=== PATIENT | female | born 1985 | race Caucasian/White ===

== ENCOUNTER 2022-11-13 18:42 | Inpatient (IN) ==
[2022-11-13] MEDS ORDERED: SODIUM CHLORIDE 0.9% 1,000 ML IV ONE (18:45)
--- NOTE | 2022-11-13 18:59 | Emergency Department Note ---
Impression & Plan Sepsis, UTI (urinary tract infection), Acute hypotension, Pneumonia ED Provider Note NAME: RAMIRO GRAVES AGE: 37 SEX: F : 1985 ARRIVES VIA: Ambulance INFORMANT: Patient, EMS, documentation from the patient's rehab ED PROVIDER(S): Juan Davis DO CHIEF COMPLAINT: Sepsis HPI: The patient is a 37-year-old female who presented to the emergency department for an evaluation of sepsis. The patient has been at [facility] rehab for the last 8 days. The patient initially was seen at [facility] at the beginning of September. She was diagnosed with pneumonia. She was started on antibiotics. The patient's condition started to worsen. 911 was called and the patient was taken to [facility] in [place]. There she was treated with intubation and resuscitation. She developed bowel ischemia requiring a bowel resection. The patient did notice that she was having left-sided abdominal pain over the course the last few days. She is also been noticing fever. She has a wound VAC in place. The patient denies having any cough. She does have a history of tobacco use. She notices lower extremity swelling. The patient has been on antibiotics for the last few days. She was sent to the emergency department today because of further worsening of her condition. She did receive 200 mL of normal saline solution prior to arrival. The patient is a history of CHF. She has a history of low ejection fraction as well. ROS: See above HPI for pertinent positives & negatives. A total of 10 systems reviewed and were otherwise negative. PAST MEDICAL HISTORY: See Below PAST SURGICAL HISTORY: See Below FAMILY HISTORY: See Below SOCIAL HISTORY: See Below HOME MEDICATIONS: See Below ALLERGIES: See Below VITALS: See Below PHYSICAL EXAMINATION: GENERAL: The patient is awake and alert. The patient is very anxious and appears to be uncomfortable. EYES: The conjunctivae are clear. The pupils are round and reactive. EARS, NOSE, MOUTH AND THROAT: The nose is without any evidence of any deformity. Mucous membranes are dry. NECK: The neck is nontender and supple. RESPIRATORY: Normal respiratory effort is noted there is no evidence of wheezing rhonchi or rales CARDIOVASCULAR: Regular rate and rhythm noted there no murmurs rubs or gallops normal S1 normal S2. GASTROINTESTINAL: The abdomen is soft and mildly distended. There is significant left-sided tenderness to palpation. MUSCULOSKELETAL/EXTREMITIES: There is no evidence of gross deformity full range of motion is noted in the hips and shoulders. SKIN: Skin is warm and dry. There is pedal edema bilaterally. NEUROLOGIC: Patient is awake alert and oriented x3. MEDICAL DECISION MAKING: The patient is a 37-year-old female who presented to the emergency department from inpatient rehab for an evaluation of fever. The patient had a recent pneumonia. This led to a prolonged course of intubation as well as intensive care. The patient developed bowel ischemia. She did receive a bowel resection while she was at [facility]. The patient was sent to [facility] for rehab. She has been there for 8 days. She started to develop fever. She was sent to the emergency department for further evaluation. The patient was treated with IV fluids but was not given a full sepsis bolus given her cardiac history. She was treated with IV antibiotics. I discussed the patient's laboratory and radiographic studies with her. No postoperative infection was noted. She may have a slight pneumonia at the right base. Urinalysis does appear to be consistent with infection as well. I discussed patient's condition [facility] I also discussed the case with the ICU. Triage Nursing notes reviewed. Prior medical records reviewed Vital Signs: reviewed and remarkable for hypotension and tachycardia. Differential diagnosis: Viral syndrome, otitis, pharyngitis, pneumonia, influenza, meningitis, urinary tract infection, sepsis, bacteremia, as well as other pathologies. ER treatment provided: See below Diagnostics interpreted by me: ECG: EKG was obtained in the emergency department. My interpretation is normal sinus rhythm at 93 bpm. There is no ectopy. Left bundle branch block pattern was noted. No previous tracing was available. Cardiac Monitoring: An order was placed for continuous cardiac monitoring. The monitor shows a rate of 111 bpm with sinus rhythm. Laboratory studies: As stated above and show below. Imaging studies: See below. Radiographic imaging was reviewed by myself Consultation(s): I discussed this case with Dr. Martino who is [facility] ED COURSE: Procedures: none Critical Care: I have personally spent greater than 45 minutes of critical care time in the direct management of this patient. This includes bedside care, interpretation of diagnostic studies, and testing, discussion with consultants, patient, and family members, and other required patient management activities. This 45 minutes is in excess of all separately billable procedures.. Past Med/Surg History Medical History ADHD Bipolar disorder CHF (congestive heart failure) GERD with esophagitis Hypertension PTSD (post-traumatic stress disorder) Type 2 diabetes mellitus Surgical History History of bowel resection Social History Smoking Status: Current some day smoker Tobacco Type: Cigarettes Preferred Language: German Feels Safe at Home: Yes Results & Data (ED) Vital Signs Vital Signs - 24 hr 11/13/22 18:54 11/13/22 19:16 11/13/22 19:15 Temperature 37.9 C H Temperature Source Oral Pulse Rate 100 H 91 H Pulse Rate [Apical] Pulse Strength Normal Respiratory Rate 22 24 Respiratory Effort / Characteristics Non-Labored Spontaneous Respiratory Depth Normal Respiratory Pattern Regular Blood Pressure 91/60 L 90/61 L Blood Pressure [Right Arm] Blood Pressure Mean 70 70 Blood Pressure Mean [Right Arm] Pulse Oximetry 96 98 97 Oxygen Delivery Method Nasal Cannula Room Air Nasal Cannula Oxygen Flow Rate 2 2 2 Sepsis Recent Fever Within 48 Hours Yes Sepsis New/Unexplained Change in Mental Status No Sepsis Action Taken by Nursing Physician Notified 11/13/22 19:43 11/13/22 20:17 11/13/22 19:13 Temperature Temperature Source Pulse Rate 93 H 93 H Pulse Rate [Apical] 88 Pulse Strength Respiratory Rate 30 H 27 H Respiratory Effort / Characteristics Respiratory Depth Respiratory Pattern Blood Pressure 85/52 L Blood Pressure [Right Arm] 82/58 L Blood Pressure Mean 63 Blood Pressure Mean [Right Arm] 66 Pulse Oximetry 98 99 Oxygen Delivery Method Nasal Cannula Nasal Cannula Oxygen Flow Rate 2 2 Sepsis Recent Fever Within 48 Hours Sepsis New/Unexplained Change in Mental Status Sepsis Action Taken by Nursing 11/13/22 19:45 11/13/22 20:15 11/13/22 20:17 Temperature Temperature Source Pulse Rate 90 92 H 92 H Pulse Rate [Apical] Pulse Strength Respiratory Rate 20 27 H 19 Respiratory Effort / Characteristics Respiratory Depth Respiratory Pattern Blood Pressure 94/61 L 75/60 L 82/58 L Blood Pressure [Right Arm] Blood Pressure Mean 72 65 66 Blood Pressure Mean [Right Arm] Pulse Oximetry 99 98 90 Oxygen Delivery Method Oxygen Flow Rate 2 2 2 Sepsis Recent Fever Within 48 Hours Sepsis New/Unexplained Change in Mental Status Sepsis Action Taken by Nursing 11/13/22 20:30 11/13/22 20:46 11/13/22 21:00 Temperature Temperature Source Pulse Rate 90 96 H 99 H Pulse Rate [Apical] Pulse Strength Respiratory Rate 26 H 20 38 H Respiratory Effort / Characteristics Respiratory Depth Respiratory Pattern Blood Pressure 96/50 L 87/48 L 96/60 L Blood Pressure [Right Arm] Blood Pressure Mean 65 61 72 Blood Pressure Mean [Right Arm] Pulse Oximetry 90 90 Oxygen Delivery Method Oxygen Flow Rate 2 2 2 Sepsis Recent Fever Within 48 Hours Sepsis New/Unexplained Change in Mental Status Sepsis Action Taken by Nursing 11/13/22 21:16 11/13/22 21:32 11/13/22 22:15 Temperature Temperature Source Pulse Rate 101 H 105 H 114 H Pulse Rate [Apical] Pulse Strength Respiratory Rate 26 H 25 H 26 H Respiratory Effort / Characteristics Respiratory Depth Respiratory Pattern Blood Pressure 100/62 109/54 L 89/70 L Blood Pressure [Right Arm] Blood Pressure Mean 74 72 76 Blood Pressure Mean [Right Arm] Pulse Oximetry 96 90 94 Oxygen Delivery Method Oxygen Flow Rate 2 2 2 Sepsis Recent Fever Within 48 Hours Sepsis New/Unexplained Change in Mental Status Sepsis Action Taken by Nursing 11/13/22 22:30 11/13/22 22:45 Temperature Temperature Source Pulse Rate 111 H Pulse Rate [Apical] Pulse Strength Respiratory Rate 28 H 26 H Respiratory Effort / Characteristics Respiratory Depth Respiratory Pattern Blood Pressure 104/68 111/76 Blood Pressure [Right Arm] Blood Pressure Mean 80 87 Blood Pressure Mean [Right Arm] Pulse Oximetry 90 90 Oxygen Delivery Method Oxygen Flow Rate 2 2 Sepsis Recent Fever Within 48 Hours Sepsis New/Unexplained Change in Mental Status Sepsis Action Taken by Assisted Medications Current Medication List: was personally reviewed by me Laboratory Data Attestation: I reviewed the patient's lab results. 11/13/22 18:53 11/13/22 18:53 Lab Results 11/13/22 11/13/22 11/13/22 Range/Units 18:53 18:53 18:53 WBC 17.06 H (4.8-10.8) K/ul RBC 3.38 L (4.20-5.40) M/uL Hgb 10.1 L (12.0-16.0) g/dl Hct 31.0 L (37.0-47.0) % MCV 91.7 (80.0-100.0) fL MCH 29.9 (25.0-34.0) pg MCHC 32.6 (32.0-36.0) g/dL RDW Std Deviation 69.6 H (36.4-46.3) fL RDW Coeff of Ramiro 20.8 H (11.5-14.5) % Plt Count 161 (130-400) K/uL MPV 9.7 (9.4-12.4) fL Immature Gran % (Auto) 0.6 % Neut % (Auto) 85.2 % Lymph % (Auto) 5.0 % [place] % (Auto) 9.0 % Eos % (Auto) 0.0 % Baso % (Auto) 0.2 % Neut # (Auto) 14.52 H (1.40-6.50) K/uL Lymph # (Auto) 0.86 L (1.20-3.40) K/uL [place] # (Auto) 1.54 H (0.11-0.59) K/uL Eos # (Auto) 0.00 (0.00-0.50) K/uL Baso # (Auto) 0.04 (0.00-0.20) K/uL Immature Gran # (Auto) 0.10 (0.01-0.20) K/uL Anisocytosis Present Ovalocytes 1+ PT (9.0-12.0) Seconds INR (0.9-1.1) APTT (21.0-31.0) Seconds PTT Ratio VBG pH (7.36-7.41) VBG pCO2 (38-50) mmHg VBG pO2 mmHg VBG HCO3 mmol/L VBG O2 Saturation % VBG Base Excess mEq/L Sodium 129 L (136-145) mmol/L Potassium 4.8 (3.5-5.1) mmol/L Chloride 100 (98-107) mmol/L Carbon Dioxide 17 L (21-32) mmol/L Anion Gap 12 H (3-11) BUN 24 H (6-23) mg/dl Creatinine 1.20 (0.6-1.2) mg/dl Est Cr Clr Drug Dosing 95.3 ml/min Est GFR ( Amer) 66.9 ml/min Est GFR (Non-Af Amer) 57.7 ml/min BUN/Creatinine Ratio 20.0 (10-20) Glucose 142 H (70-99(Fasting)) mg/dl Lactate 1.7 (0.4-2.0) mmol/L Calcium 6.5 L (8.6-10.3) mg/dl Magnesium 0.7 L* (1.7-2.4) mg/dl Total Bilirubin 0.7 (0.2-1.0) mg/dl Direct Bilirubin 0.2 (0-0.2) mg/dl AST 22 (13-39) U/L ALT 25 (7-52) U/L Alkaline Phosphatase 215 H (34-104) U/L Troponin I High Sens 22.6 H (0-14) pg/ml Total Protein 5.6 L (6.0-8.3) gm/dl Albumin 2.8 L (3.4-5.0) gm/dl Procalcitonin (0-0.5) ng/ml Urine Color Urine Appearance (Clear) Urine pH (4.5-7.5) Ur Specific [place] (1.000-1.030) Urine Protein (Negative) Urine Glucose (UA) (Negative) Urine Ketones (Negative) Urine Blood (Negative) Urine Nitrite (Negative) Urine Bilirubin (Negative) Urine Urobilinogen (Negative) Ur Leukocyte Esterase (Negative) Urine WBC (Auto) (0-5) /hpf Urine RBC (Auto) (0-4) /hpf U Hyaline Cast (Auto) (0-5) /lpf U Epithel Cells (Auto) (0-5) /lpf Urine Bacteria (Auto) (Negative) Adenovirus (PCR) (NotDetected) B. pertussis DNA (PCR) (NotDetected) B.parapertussis DNA PCR (NotDetected) C. pneumoniae DNA (PCR) (NotDetected) Coronavirus OC43 (PCR) (NotDetected) Coronavirus HKU1 (PCR) (NotDetected) Coronavirus 229E (PCR) (NotDetected) SARS-CoV-2 (PCR) (NotDetected) Coronavirus NL63 (PCR) (NotDetected) Human Metapneumovir PCR (NotDetected) Influenza Type A (PCR) (NotDetected) Influenza Type B (PCR) (NotDetected) M. pneumoniae (PCR) (NotDetected) Parainfluenza 1 (PCR) (NotDetected) Parainfluenza 2 (PCR) (NotDetected) Parainfluenza 3 (PCR) (NotDetected) Parainfluenza 4 (PCR) (NotDetected) RSV (PCR) (NotDetected) Entero/Rhino (PCR) (NotDetected) 11/13/22 11/13/22 11/13/22 Range/Units 18:53 19:11 19:14 WBC (4.8-10.8) K/ul RBC (4.20-5.40) M/uL Hgb (12.0-16.0) g/dl Hct (37.0-47.0) % MCV (80.0-100.0) fL MCH (25.0-34.0) pg MCHC (32.0-36.0) g/dL RDW Std Deviation (36.4-46.3) fL RDW Coeff of Ramiro (11.5-14.5) % Plt Count (130-400) K/uL MPV (9.4-12.4) fL Immature Gran % (Auto) % Neut % (Auto) % Lymph % (Auto) % [place] % (Auto) % Eos % (Auto) % Baso % (Auto) % Neut # (Auto) (1.40-6.50) K/uL Lymph # (Auto) (1.20-3.40) K/uL [place] # (Auto) (0.11-0.59) K/uL Eos # (Auto) (0.00-0.50) K/uL Baso # (Auto) (0.00-0.20) K/uL Immature Gran # (Auto) (0.01-0.20) K/uL Anisocytosis Ovalocytes PT 14.0 H (9.0-12.0) Seconds INR 1.3 H (0.9-1.1) APTT 33.5 H (21.0-31.0) Seconds PTT Ratio 1.2 VBG pH (7.36-7.41) VBG pCO2 (38-50) mmHg VBG pO2 mmHg VBG HCO3 mmol/L VBG O2 Saturation % VBG Base Excess mEq/L Sodium (136-145) mmol/L Potassium (3.5-5.1) mmol/L Chloride (98-107) mmol/L Carbon Dioxide (21-32) mmol/L Anion Gap (3-11) BUN (6-23) mg/dl Creatinine (0.6-1.2) mg/dl Est Cr Clr Drug Dosing ml/min Est GFR ( Amer) ml/min Est GFR (Non-Af Amer) ml/min BUN/Creatinine Ratio (10-20) Glucose (70-99(Fasting)) mg/dl Lactate (0.4-2.0) mmol/L Calcium (8.6-10.3) mg/dl Magnesium (1.7-2.4) mg/dl Total Bilirubin (0.2-1.0) mg/dl Direct Bilirubin (0-0.2) mg/dl AST (13-39) U/L ALT (7-52) U/L Alkaline Phosphatase (34-104) U/L Troponin I High Sens (0-14) pg/ml Total Protein (6.0-8.3) gm/dl Albumin (3.4-5.0) gm/dl Procalcitonin (0-0.5) ng/ml Urine Color Dark Yellow Urine Appearance Cloudy A (Clear) Urine pH 5.5 (4.5-7.5) Ur Specific [place] 1.017 (1.000-1.030) Urine Protein 1+ H (Negative) Urine Glucose (UA) 1+ H (Negative) Urine Ketones Negative (Negative) Urine Blood Negative (Negative) Urine Nitrite Negative (Negative) Urine Bilirubin Negative (Negative) Urine Urobilinogen Negative (Negative) Ur Leukocyte Esterase 2+ H (Negative) Urine WBC (Auto) >30 H (0-5) /hpf Urine RBC (Auto) 0-4 (0-4) /hpf U Hyaline Cast (Auto) 1-5 (0-5) /lpf U Epithel Cells (Auto) 5-10 H (0-5) /lpf Urine Bacteria (Auto) Negative (Negative) Adenovirus (PCR) Not Detected (NotDetected) B. pertussis DNA (PCR) Not Detected (NotDetected) B.parapertussis DNA PCR Not Detected (NotDetected) C. pneumoniae DNA (PCR) Not Detected (NotDetected) Coronavirus OC43 (PCR) Not Detected (NotDetected) Coronavirus HKU1 (PCR) Not Detected (NotDetected) Coronavirus 229E (PCR) Not Detected (NotDetected) SARS-CoV-2 (PCR) Not Detected (NotDetected) Coronavirus NL63 (PCR) Not Detected (NotDetected) Human Metapneumovir PCR Not Detected (NotDetected) Influenza Type A (PCR) Not Detected (NotDetected) Influenza Type B (PCR) Not Detected (NotDetected) M. pneumoniae (PCR) Not Detected (NotDetected) Parainfluenza 1 (PCR) Not Detected (NotDetected) Parainfluenza 2 (PCR) Not Detected (NotDetected) Parainfluenza 3 (PCR) Not Detected (NotDetected) Parainfluenza 4 (PCR) Not Detected (NotDetected) RSV (PCR) Not Detected (NotDetected) Entero/Rhino (PCR) Not Detected (NotDetected) 11/13/22 11/13/22 11/13/22 Range/Units 19:14 19:14 21:37 WBC (4.8-10.8) K/ul RBC (4.20-5.40) M/uL Hgb (12.0-16.0) g/dl Hct (37.0-47.0) % MCV (80.0-100.0) fL MCH (25.0-34.0) pg MCHC (32.0-36.0) g/dL RDW Std Deviation (36.4-46.3) fL RDW Coeff of Ramiro (11.5-14.5) % Plt Count (130-400) K/uL MPV (9.4-12.4) fL Immature Gran % (Auto) % Neut % (Auto) % Lymph % (Auto) % [place] % (Auto) % Eos % (Auto) % Baso % (Auto) % Neut # (Auto) (1.40-6.50) K/uL Lymph # (Auto) (1.20-3.40) K/uL [place] # (Auto) (0.11-0.59) K/uL Eos # (Auto) (0.00-0.50) K/uL Baso # (Auto) (0.00-0.20) K/uL Immature Gran # (Auto) (0.01-0.20) K/uL Anisocytosis Ovalocytes PT (9.0-12.0) Seconds INR (0.9-1.1) APTT (21.0-31.0) Seconds PTT Ratio VBG pH 7.33 L (7.36-7.41) VBG pCO2 36 L (38-50) mmHg VBG pO2 30 mmHg VBG HCO3 19 mmol/L VBG O2 Saturation < 60.0 % VBG Base Excess -6.2 mEq/L Sodium (136-145) mmol/L Potassium (3.5-5.1) mmol/L Chloride (98-107) mmol/L Carbon Dioxide (21-32) mmol/L Anion Gap (3-11) BUN (6-23) mg/dl Creatinine (0.6-1.2) mg/dl Est Cr Clr Drug Dosing ml/min Est GFR ( Amer) ml/min Est GFR (Non-Af Amer) ml/min BUN/Creatinine Ratio (10-20) Glucose (70-99(Fasting)) mg/dl Lactate (0.4-2.0) mmol/L Calcium (8.6-10.3) mg/dl Magnesium (1.7-2.4) mg/dl Total Bilirubin (0.2-1.0) mg/dl Direct Bilirubin (0-0.2) mg/dl AST (13-39) U/L ALT (7-52) U/L Alkaline Phosphatase (34-104) U/L Troponin I High Sens 13.0 D (0-14) pg/ml Total Protein (6.0-8.3) gm/dl Albumin (3.4-5.0) gm/dl Procalcitonin 4.30 H (0-0.5) ng/ml Urine Color Urine Appearance (Clear) Urine pH (4.5-7.5) Ur Specific [place] (1.000-1.030) Urine Protein (Negative) Urine Glucose (UA) (Negative) Urine Ketones (Negative) Urine Blood (Negative) Urine Nitrite (Negative) Urine Bilirubin (Negative) Urine Urobilinogen (Negative) Ur Leukocyte Esterase (Negative) Urine WBC (Auto) (0-5) /hpf Urine RBC (Auto) (0-4) /hpf U Hyaline Cast (Auto) (0-5) /lpf U Epithel Cells (Auto) (0-5) /lpf Urine Bacteria (Auto) (Negative) Adenovirus (PCR) (NotDetected) B. pertussis DNA (PCR) (NotDetected) B.parapertussis DNA PCR (NotDetected) C. pneumoniae DNA (PCR) (NotDetected) Coronavirus OC43 (PCR) (NotDetected) Coronavirus HKU1 (PCR) (NotDetected) Coronavirus 229E (PCR) (NotDetected) SARS-CoV-2 (PCR) (NotDetected) Coronavirus NL63 (PCR) (NotDetected) Human Metapneumovir PCR (NotDetected) Influenza Type A (PCR) (NotDetected) Influenza Type B (PCR) (NotDetected) M. pneumoniae (PCR) (NotDetected) Parainfluenza 1 (PCR) (NotDetected) Parainfluenza 2 (PCR) (NotDetected) Parainfluenza 3 (PCR) (NotDetected) Parainfluenza 4 (PCR) (NotDetected) RSV (PCR) (NotDetected) Entero/Rhino (PCR) (NotDetected) Administered Medications Discontinued Medications Diphenhydramine HCl (Diphenhydramine 50 Mg/Ml Vial) 25 mg IV NOW STA Stop: 11/13/22 20:06 Last Admin: 11/13/22 20:18 Dose: 25 mg Documented By: SON Diphenhydramine HCl (Diphenhydramine 50 Mg/Ml Vial) Confirm Administered Dose 50 mg .ROUTE .STK-MED ONE Stop: 11/13/22 20:07 Last Admin: 11/13/22 20:18 Dose: Not Given Documented By: SON Sodium Chloride (Nss) 1,000 mls @ 999 mls/hr IV .Q1H1M ONE Stop: 11/13/22 19:45 Last Admin: 11/13/22 19:47 Dose: 999 mls/hr Documented By: SON Cefepime HCl 2,000 mg/ Syringe 20 mls @ 5 mls/min IV NOW STA; Protocol Stop: 11/13/22 19:33 Last Admin: 11/13/22 19:56 Dose: 5 mls/min Documented By: SON Magnesium Sulfate/Dextrose (Magnesium Sulfate / D5w) 1 gm in 100 mls @ 100 mls/hr IV Q1H MABLE Stop: 11/13/22 21:37 Last Admin: 11/13/22 21:19 Dose: 100 mls/hr Documented By: Infusion: 11/13/22 21:18 Dose: 100 mls/hr Documented By: Admin: 11/13/22 20:18 Dose: 100 mls/hr Documented By: SON Famotidine (Pepcid 20mg Iv Push) 20 mg in 5 mls @ 2.5 mls/min IV NOW STA Stop: 11/13/22 20:06 Last Admin: 11/13/22 20:41 Dose: 2.5 mls/min Documented By: SON Ioversol (Optiray 320 100ml) 90 ml IV ONCE ONE Stop: 11/13/22 20:09 Last Admin: 11/13/22 20:08 Dose: 90 ml Documented By: LIZ Imaging Data Attestation: I personally reviewed and interpreted this imaging study as follows: My Impression: 1 view chest x-ray was obtained in the emergency department. My interpretation is cardiomegaly with atelectasis versus pneumonia at the right base, final report below. Radiologist's Impression: Chest X-Ray 11/13/22 18:45 XR chest 1V portable CLINICAL HISTORY: Sepsis. COMPARISON STUDY: No previous studies for comparison. FINDINGS: There is elevation of the right hemidiaphragm. Right basilar airspace opacity is present. Left lung is clear. There is probably vascular congestion without overt pulmonary edema. There is moderate enlargement of the cardiac silhouette. There is no pneumothorax or pleural effusion. IMPRESSION: 1. Moderate enlargement of the cardiac silhouette. This may reflect cardiomegaly. However, the contour of the silhouette raises the possibility of a pericardial effusion. Pulmonary vascular congestion without overt pulmonary edema. 2. Right basilar opacity. This may reflect pneumonia or atelectasis. ACT 112: Negative or not required by law. Electronically signed by: Federico Kidd M.D. 11/13/2022 7:43 PM Abdomen/Pelvis CT 10/01/23 19:37 Exam(s): CT ABDOMEN + PELVIS With Contrast IV Amt: 90ml EXAM: CT Abdomen and Pelvis With Intravenous Contrast CLINICAL HISTORY: Reason for exam: pos top fever. TECHNIQUE: Axial computed tomography images of the abdomen and pelvis with intravenous contrast. Automated exposure control was utilized for the study. A dose lowering technique was utilized adhering to the principles of ALARA. CONTRAST: Patient received 90ml of IV contrast COMPARISON: No relevant prior studies available. FINDINGS: Lung bases: Atelectasis at the lung bases. ABDOMEN: Liver: Hepatomegaly and hepatic steatosis. Gallbladder and bile ducts: Unremarkable. Pancreas: Unremarkable. Spleen: Unremarkable. Adrenals: Unremarkable. Kidneys and ureters: Unremarkable. No obstructing stones. No hydronephrosis. Stomach and bowel: No bowel obstruction, free fluid, fluid collection, or free air. PELVIS: Appendix: No findings to suggest acute appendicitis. Bladder: Higgins catheter within the bladder. Reproductive: Unremarkable as visualized. ABDOMEN and PELVIS: Intraperitoneal space: See above. Bones/joints: No acute fracture. Soft tissues: Unremarkable. Vasculature: Unremarkable. Lymph nodes: Unremarkable. Tubes, lines and devices: Peg tube appropriately positioned within the gastric antrum. IMPRESSION: 1. Atelectasis at the lung bases. 2. Hepatomegaly and hepatic steatosis. 3. Peg tube appropriately positioned within the gastric antrum. 4. No bowel obstruction, free fluid, fluid collection, or free air. Electronically signed by: Ezequiel Grover MD 11/13/22 21:28 PM Discharge Plan Visit Data Chief Complaint: Fever Stated Complaint: HYPOTENSION, FEVER ED Provider: Juan Davis Discharge Problem: Sepsis, UTI (urinary tract infection), Acute hypotension, Pneumonia Patient Disposition: Being Evaluated by Hospitalist Forms Stand Alone Forms: [facility] [place] Referrals Referrals: [facility] [Primary Care Provider] -
[2022-11-13 19:14] LABS: Basophils # (auto) 0.04 K/uL (0.00-0.20); Basophils % (auto) 0.2 %; Hemoglobin 10.1 g/dl (12.0-16.0); Immature Granulocytes % (auto) 0.6 %; Lymphocytes # (auto) 0.86 K/uL (1.20-3.40); Mean Corpuscular Hemoglobin 29.9 pg (25.0-34.0); Mean Corpuscular Hgb Conc 32.6 g/dL (32.0-36.0); Mean Corpuscular Volume 91.7 fL (80.0-100.0); Mean Platelet Volume 9.7 fL (9.4-12.4); Monocytes # (auto) 1.54 K/uL (0.11-0.59); Neutrophils # (auto) 14.52 K/uL (1.40-6.50); Neutrophils % (auto) 85.2 %; Platelet Count 161 K/uL (130-400); RDW Coefficient of Variation 20.8 % (11.5-14.5); RDW Standard Deviation 69.6 fL (36.4-46.3); Red Blood Count 3.38 M/uL (4.20-5.40); White Blood Count 17.06 K/ul (4.8-10.8)
[2022-11-13 19:27] LABS: Appearance Urine Cloudy (Clear); Bacteria Urine Automated Negative (Negative); Bilirubin Urine Negative (Negative); Blood Urine Negative (Negative); Color Urine Dark Yellow; Glucose Urine UA 1+ (Negative); Ketones Urine Negative (Negative); Leukocyte Esterase Urine 2+ (Negative); Nitrite Urine Negative (Negative); Protein Urine 1+ (Negative); RBC Urine Automated 0-4 /hpf (0-4); Specific Gravity Urine 1.017 (1.000-1.030); Urobilinogen Urine Negative (Negative); WBC Urine Automated >30 /hpf (0-5); pH Urine 5.5 (4.5-7.5)
[2022-11-13] MEDS ORDERED: CEFEPIME 2,000 MG in SYRINGE 0 ML IV STA (19:30)
[2022-11-13 19:34] LABS: Anisocytosis Present; Ovalocytes 1+
[2022-11-13 19:36] LABS: Base Excess VBG -6.2 mEq/L; HCO3 VBG 19 mmol/L; Oxygen Saturation VBG < 60.0 %; PCO2 VBG 36 mmHg (38-50); PO2 VBG 30 mmHg; pH VBG 7.33 (7.36-7.41)
[2022-11-13 19:38] LABS: Bilirubin Direct 0.2 mg/dl (0-0.2)
[2022-11-13 19:39] LABS: Albumin Level 2.8 gm/dl (3.4-5.0); Bilirubin,Total 0.7 mg/dl (0.2-1.0); Calcium 6.5 mg/dl (8.6-10.3); Creatinine Clr Calc Pharmacy 95.3 ml/min; Est GFR (African American) 66.9 ml/min; Est GFR (Non-African American) 57.7 ml/min; Magnesium 0.7 mg/dl (1.7-2.4); Potassium 4.8 mmol/L (3.5-5.1); Total Protein 5.6 gm/dl (6.0-8.3)
--- NOTE | 2022-11-13 19:44 | XRay Report ---
XR chest 1V portable CLINICAL HISTORY: Sepsis. COMPARISON STUDY: No previous studies for comparison. FINDINGS: There is elevation of the right hemidiaphragm. Right basilar airspace opacity is present. L eft lung is clear. There is probably vascular congestion without overt pulmonary edema. There is mode rate enlargement of the cardiac silhouette. There is no pneumothorax or pleural effusion. IMPRESSION: 1. Moderate enlargement of the cardiac silhouette. This may reflect cardiomegaly. However, the contou r of the silhouette raises the possibility of a pericardial effusion. Pulmonary vascular congestion w ithout overt pulmonary edema. 2. Right basilar opacity. This may reflect pneumonia or atelectasis. ACT 112: Negative or not required by law. Electronically signed by: Federico Kidd M.D. 11/13/2022 7:43 PM
[2022-11-13 20:00] LABS: Troponin I High Sensitivity 22.6 pg/ml (0-14)
[2022-11-13] MEDS ORDERED: diphenhydrAMINE 50 MG/ML VIAL IV STA (20:05)
[2022-11-13] MEDS ORDERED: FAMOTIDINE 20MG IV PUSH 20 MG/5 ML SYR IV STA (20:05)
[2022-11-13] MEDS ORDERED: diphenhydrAMINE 50 MG/ML VIAL ONE (20:06)
[2022-11-13 20:08] LABS: INR 1.3 (0.9-1.1); Partial Thromboplastin Ratio 1.2; Partial Thromboplastin Time 33.5 Seconds (21.0-31.0)
[2022-11-13] MEDS ORDERED: OPTIRAY 320 100ml IV ONE (20:08)
[2022-11-13] MEDS: MAGNESIUM SULFATE / D5W 1 GM/100 ML BAG IV SCH ×2 (20:18→21:19)
[2022-11-13 20:19] LABS: Adenovirus PCR Not Detected (NotDetected); Bordetella parapertussis PCR Not Detected (NotDetected); Bordetella pertussis PCR Not Detected (NotDetected); Chlamydia pneumoniae PCR Not Detected (NotDetected); Coronavirus 229E PCR Not Detected (NotDetected); Coronavirus CoV-2 (COVID19)PCR Not Detected (NotDetected); Coronavirus HKU1 PCR Not Detected (NotDetected); Coronavirus NL63 PCR Not Detected (NotDetected); Coronavirus OC43PCR Not Detected (NotDetected); Human Metapneumovirus PCR Not Detected (NotDetected); Influenza A PCR Not Detected (NotDetected); Influenza B PCR Not Detected (NotDetected); Mycoplasma pneumoniae PCR Not Detected (NotDetected); Parainfluenza Virus 1 PCR Not Detected (NotDetected); Parainfluenza Virus 2 PCR Not Detected (NotDetected); Parainfluenza Virus 3 PCR Not Detected (NotDetected); Parainfluenza Virus 4 PCR Not Detected (NotDetected); Respiratory Syncytial VirusPCR Not Detected (NotDetected); Rhinovirus/Enterovirus PCR Not Detected (NotDetected)
--- NOTE | 2022-11-13 21:29 | CT Scan Report ---
Exam(s): CT ABDOMEN + PELVIS With Contrast IV Amt: 90ml EXAM: CT Abdomen and Pelvis With Intravenous Contrast CLINICAL HISTORY: Reason for exam: pos top fever. TECHNIQUE: Axial computed tomography images of the abdomen and pelvis with intravenous contrast. Automated exposure control was utilized for the study. A dose lowering technique was utilized adhering to the principles of ALARA. CONTRAST: Patient received 90ml of IV contrast COMPARISON: No relevant prior studies available. FINDINGS: Lung bases: Atelectasis at the lung bases. ABDOMEN: Liver: Hepatomegaly and hepatic steatosis. Gallbladder and bile ducts: Unremarkable. Pancreas: Unremarkable. Spleen: Unremarkable. Adrenals: Unremarkable. Kidneys and ureters: Unremarkable. No obstructing stones. No hydronephrosis. Stomach and bowel: No bowel obstruction, free fluid, fluid collection, or free air. PELVIS: Appendix: No findings to suggest acute appendicitis. Bladder: Higgins catheter within the bladder. Reproductive: Unremarkable as visualized. ABDOMEN and PELVIS: Intraperitoneal space: See above. Bones/joints: No acute fracture. Soft tissues: Unremarkable. Vasculature: Unremarkable. Lymph nodes: Unremarkable. Tubes, lines and devices: Peg tube appropriately positioned within the gastric antrum. IMPRESSION: 1. Atelectasis at the lung bases. 2. Hepatomegaly and hepatic steatosis. 3. Peg tube appropriately positioned within the gastric antrum. 4. No bowel obstruction, free fluid, fluid collection, or free air. Electronically signed by: Ezequiel Grover MD 11/13/22 21:28 PM
[2022-11-13] MEDS ORDERED: ALBUMIN 25% 12.5 GM/50 ML VIAL IV ONE (22:55)
[2022-11-13] MEDS ORDERED: Patient's ALLERGY Info needs ENTERED STA (23:53)
--- NOTE | 2022-11-13 23:54 | History & Physical Report ---
Date of Service November 13, 2022 Assessment & Plan (1) Sepsis: Plan: Patient is a 37-year-old female with a past medical history of ADHD, morbid obesity, and nonischemic cardiomyopathy who presents to the hospital for evaluation for sepsis. CT of the abdomen and pelvis overall was unremarkable and showed changes consistent with her most recent bowel resection. Source thus far seems to be urinary. She was initially started on cefepime but could not tolerate this. Patient is currently hemodynamically stable. -Admit to telemetry, telemetry indication being sepsis, hypomagnesemia -SIRS criteria being elevated white blood cell count, tachycardia, tachypnea, and fever. Source possibly urinary -Switch cefepime to levofloxacin as patient has multiple reactions to penicillin and cephalosporin based antibiotics -Blood and urine cultures pending, tailor antibiotic therapy based on results -Antiemetics and antipyretics as needed -Initially was given boluses of fluid, however, patient has CHF with reduced ejection fraction of 20% based off of notes from [facility] -Because of reduced EF, she did require supplemental oxygen and may be fluid overloaded now, will hold off from additional fluid resuscitation for this reason -CT of the abdomen and pelvis did show bases of the lungs revealing atelectasis but could be pneumonia as well especially given oxygen requirement -Levofloxacin should cover both urinary and respiratory sources (2) UTI (urinary tract infection): Plan: - As above, UA with evidence of UTI with polyuria as main symptom (3) History of bowel resection: Plan: - Performed at [facility] -We will obtain records when able -Patient has not had any complications but is developing mild abdominal pain but is having normal bowel movements -CT of the abdomen pelvis showing no evidence of fluid collection, inflammation, or hemorrhage -Continue cholestyramine twice daily (4) Hypertension: Plan: -Hold antihypertensives in the setting of sepsis with borderline blood pressures (5) CHF (congestive heart failure): Plan: - Per chart review from records from [facility], patient has HFrEF with an ejection fraction of 20% -The conservative with fluid resuscitation, echocardiogram in the morning -Hold metoprolol, SGLT2, torsemide (6) Bipolar disorder: Plan: - Seems to be only on lorazepam 1 mg 3 times a day as needed, hold for now (7) GERD with esophagitis: Plan: - Continue Protonix (8) PTSD (post-traumatic stress disorder): Plan: -Ativan as above (9) Type 2 diabetes mellitus: Plan: -Typically on SGLT2, metformin -Switch to basal bolus insulin with sliding scale (10) Hypomagnesemia: Plan: -Admission magnesium of 0.7, status post 2 g of magnesium repleted in the ED -2 additional grams ordered by myself, recheck in a.m. -Suspect due to poor p.o. intake, consider consulting dietitian (11) Hyponatremia: Plan: -Admission sodium of 129, suspect due to poor p.o. intake -Recheck BMP in a.m. Plan Disposition: Admit to telemetry, telemetry indication being sepsis and hypomagnesemia DVT prophylaxis: Heparin Diet: DM 2, low-sodium CODE STATUS: Full code History of Present Illness Chief Complaint: Sepsis work-up Primary Care Provider: [facility] Patient is a 37-year-old female with a past medical history of ADHD, morbid obesity, and nonischemic cardiomyopathy who presents to the hospital for evaluation for sepsis. She has been at [facility] for the past 8 days because on 09/20/2022, the patient presented to [facility] for respiratory distress after having been diagnosed with pneumonia and previously discharged from [facility] 4 days prior to her admission to [facility]. EMS was called on 09/20 for respiratory distress and she was found not wearing her oxygen and her saturations were in the 60s. She was brought into the hospital was placed on BiPAP improving her shortness of breath. She was found to be septic due to a pulmonary source and later experienced septic shock as well as renal failure. She did require intubation. Because of the septic shock, she did develop small bowel ischemia requiring resection. She eventually had a point that she required a dobutamine drip, however, after receiving antibiotics her disposition improved and her kidney function also improved and placed back on her home medications. Because she was found to have nonischemic cardiomyopathy and reduced ejection fraction of 20% via echocardiogram while in the hospital, she was started on metoprolol extended release and torsemide 20 mg daily. She had no antibiotics at the time of discharge. She received several units of blood while she was hospitalized as well. When she was medically stabilized, she was approved for inpatient rehab and transferred to [facility] on 11/04/2022. It seems that while she was at rehab, she has had progressively worsening fatigue/weakness and showing signs of infection that she has been febrile, short of breath, and weak. They attempted to give antibiotics over at [facility] but apparently, patient has allergies to penicillins and apparently cephalosporins as well that they were not able to adequately treat her for anything. For this reason, she was brought to the emergency department for evaluation and treatment. Currently, patient is complaining of fatigue and some shortness of breath albeit is improved from when she was at [facility]. She is having abdominal pain that she states has been worsening over the past 5 or 6 days. She has been having bowel movements that are normal and are occurring every day. Occasional nausea no episodes of vomiting. She does report she is having polyuria without dysuria or gross hematuria. Occasionally feels febrile. Otherwise no other complaints at this time. ED course: Patient seen and evaluated by provider. Labs are significant for An elevated white count of 17.1, hemoglobin of 10.1, INR 1.3, VBG pH of 7.33, sodium of 129, creatinine of 1.2, calcium of 6.5, magnesium of 0.7, elevated alkaline phosphatase at 215, BNP of 929, and a urinalysis significant for positive leukocyte Estrace, white blood cells. Bio fire is negative. Blood and urine cultures have been collected. Patient initially was given cefepime, however, she started having allergic reaction where she developed hives became itchy and her shortness of breath seem to worsen. She was given Benadryl and Pepcid which did improve her symptoms. She was also given a bolus of fluid. She was started on magnesium as well status post 2 g. The hospitalist service was then consulted for further recommendations and treatment. Allergies Allergy/AdvReac Type Severity Reaction Status Date / Time cefepime Allergy Hives Verified 11/14/22 01:35 doxycycline Allergy Hives Verified 11/14/22 01:34 Penicillins Allergy Hives Verified 11/14/22 01:33 Home Medications Medication Instructions Recorded Confirmed Type Unobtainable 11/14/22 11/14/22 History aripiprazole 15 mg tablet (Abilify) 15 mg PO QAM #30 tabs 11/21/22 Rx buspirone 15 mg tablet 15 mg PO TID #90 tabs 11/21/22 Rx hydroxyzine HCl 25 mg tablet 25 mg PO Q6 PRN anxiety #120 tabs 11/21/22 Rx metoprolol succinate 25 mg 25 mg PO QAM #30 tabs 11/21/22 Rx tablet,extended release 24 hr pantoprazole 40 mg tablet,delayed 40 mg PO QAM #30 tabs 11/21/22 Rx release torsemide 20 mg tablet 20 mg PO BID17 #60 tabs 11/21/22 Rx Past Med/Surg History Medical History ADHD Bipolar disorder CHF (congestive heart failure) GERD with esophagitis Hypertension PTSD (post-traumatic stress disorder) Type 2 diabetes mellitus Surgical History History of bowel resection Social History Smoking Status: Former smoker Tobacco Type: Cigarettes Hx Alcohol Use: No Hx Substance Use: No Preferred Language: Hungarian Communication Ability: Effective Bomb Loader Required: No Beliefs That Will Affect Care: None Current Living Situation: Rehab Current Living Situation Comment: [facility] Feels Safe at Home: Yes Assistive Devices: Walker and Wheelchair Review of Systems Review of Systems: All systems reviewed & are unremarkable except as noted in HPI & below Physical Exam Constitutional: well developed, well nourished, + obese and cooperative Eyes: + anicteric sclerae Neck: trachea midline, no thyromegaly Respiratory: + tachypneic Auscultation: + crackles Cardiovascular: Rate/Rhythm: regular rhythm and + tachycardic Heart Sounds: no murmur Vessels: no JVD Gastrointestinal (Abdomen): Percussion/Palpation: + abdomen tender (general tenderness to palpation) and abdomen soft Musculoskeletal: Head/Neck/Chest: normocephalic and head atraumatic Skin: no rashes, warm and dry Neurologic: moves all extremities Psychiatric: Orientation: alert and oriented x 3 Results & Data Results & Data Vital Signs (Past 12 Hours) Vital Signs Temp Pulse Pulse Resp BP BP Pulse Ox 11/13/22 23:26 110 H 11/13/22 22:45 26 H 111/76 90 11/13/22 22:30 111 H 28 H 104/68 90 11/13/22 22:15 114 H 26 H 89/70 L 94 11/13/22 21:32 105 H 25 H 109/54 L 90 11/13/22 21:16 101 H 26 H 100/62 96 11/13/22 21:00 99 H 38 H 96/60 L 90 11/13/22 20:46 96 H 20 87/48 L 90 11/13/22 20:30 90 26 H 96/50 L 11/13/22 20:17 92 H 19 82/58 L 90 11/13/22 20:15 92 H 27 H 75/60 L 98 11/13/22 19:45 90 20 94/61 L 99 11/13/22 19:13 93 H 11/13/22 20:17 88 27 H 82/58 L 99 11/13/22 19:43 93 H 30 H 85/52 L 98 11/13/22 19:15 91 H 24 90/61 L 97 11/13/22 19:16 98 11/13/22 18:54 37.9 C H 100 H 22 91/60 L 96 O2 Del Method O2 Flow Rate 11/13/22 23:26 11/13/22 22:45 2 11/13/22 22:30 2 11/13/22 22:15 2 11/13/22 21:32 2 11/13/22 21:16 2 11/13/22 21:00 2 11/13/22 20:46 2 11/13/22 20:30 2 11/13/22 20:17 2 11/13/22 20:15 2 11/13/22 19:45 2 11/13/22 19:13 11/13/22 20:17 Nasal Cannula 2 11/13/22 19:43 Nasal Cannula 2 11/13/22 19:15 Nasal Cannula 2 11/13/22 19:16 Room Air 2 11/13/22 18:54 Nasal Cannula 2 Code Status & VTE Plan VTE Prophylaxis Plan VTE Prophylaxis will be ordered: Yes Supervising Physician Co-Signing Physician Notes Attending addendum: I have physically seen this patient, have supervised the medical residents a ctivities, and agree with the H&P unless as otherwise noted. Assessment and Plan: Sepsis- Main potential sources are pulmonary and urinary Follow urine culture and sensitivity and blood culture and sensitivities Switching cefepime to levofloxacin IV due to history of allergy to penicillin/cephalosporins Zosyn 4.5 g IV every 6 hours as needed Acetaminophen 650 mg by mouth every 6 hours as needed for mild pain or fever CT abdomen/pelvis with possible pneumonia at the bases UTI- Follow urine culture sensitivities Levofloxacin IV as noted above History of bowel resection- Obtain records from [facility] regarding previous surgery CT abdomen and pelvis negative for acute findings Continue cholestyramine twice daily Remaining orders and notations as noted (1) Sepsis Sepsis acute organ dysfunction status: unspecified Sepsis type: sepsis due to unspecified organism Qualified Code(s): A41.9 - Sepsis, unspecified organism (2) UTI (urinary tract infection) Hematuria presence: without hematuria Urinary tract infection type: site unspecified Qualified Code(s): N39.0 - Urinary tract infection, site not specified
[2022-11-14] MEDS ORDERED: MoRPHine SULFATE 2 MG/ML CARP IV STA (00:33)
[2022-11-14] MEDS: levoFLOXacin/D5W 750 MG/150 ML BAG IV SCH ×2 (01:19→21:56)
[2022-11-14] MEDS ORDERED: GLUCAGON FOR INJ 1 MG VIAL SQ PRN (01:53)
[2022-11-14] MEDS ORDERED: DEXTROSE 50% 50 ML SYRINGE IV PRN (01:53)
[2022-11-14] MEDS ORDERED: GLUCOSE 40% GEL 15 GM TUBE PO PRN (01:53)
[2022-11-14] MEDS ORDERED: GLUCOSE 10 TAB/TUBE PO PRN (01:53)
[2022-11-14] MEDS ORDERED: ONDANSETRON INJ 2 MG/ML 2 ML VIAL IV PRN (01:53)
[2022-11-14] MEDS ORDERED: POLYETHYLENE (MIRALAX) 17 GM PACK PO PRN (01:53)
[2022-11-14] MEDS: ALBUMIN 25% 25 GM/100 ML VIAL IV SCH ×2 (03:38→05:09)
[2022-11-14] MEDS: MAGNESIUM SULFATE / D5W 1 GM/100 ML BAG IV SCH ×2 (03:38→05:36)
[2022-11-14 05:18] LABS: BUN Creatinine Ratio 21.7 (10-20); Calcium 6.4 mg/dl (8.6-10.3); Est GFR (African American) 77.7 ml/min; Potassium 3.9 mmol/L (3.5-5.1)
[2022-11-14 05:20] LABS: Basophils # (auto) 0.02 K/uL (0.00-0.20); Basophils % (auto) 0.2 %; Hematocrit (blood only) 26.7 % (37.0-47.0); Hemoglobin 8.9 g/dl (12.0-16.0); Immature Granulocytes # (auto) 0.06 K/uL (0.01-0.20); Immature Granulocytes % (auto) 0.6 %; Lymphocytes # (auto) 0.75 K/uL (1.20-3.40); Lymphocytes % (auto) 6.9 %; Mean Corpuscular Hemoglobin 29.7 pg (25.0-34.0); Mean Corpuscular Hgb Conc 33.3 g/dL (32.0-36.0); Monocytes # (auto) 1.09 K/uL (0.11-0.59); Monocytes % (auto) 10.1 %; Neutrophils # (auto) 8.89 K/uL (1.40-6.50); Neutrophils % (auto) 82.2 %; Platelet Count 142 K/uL (130-400); RDW Coefficient of Variation 20.8 % (11.5-14.5); RDW Standard Deviation 68.7 fL (36.4-46.3); White Blood Count 10.81 K/ul (4.8-10.8)
[2022-11-14 06:03] LABS: Anisocytosis Present; Polychromasia 1+
[2022-11-14] MEDS: MoRPHine SULFATE 2 MG/ML CARP IV PRN ×2 (08:03→14:31)
[2022-11-14] MEDS: INSULIN ASPART PER UNIT CHARGE SC SCH ×4 (08:04→20:42)
[2022-11-14] MEDS: MIDODRINE HCL 2.5 MG TAB PO SCH ×3 (08:42→17:24)
[2022-11-14] MEDS: PANTOprazole 40 MG TAB PO SCH (08:42)
[2022-11-14] MEDS: HEPARIN SOD 5,000 UNIT/0.5 ML VIAL SQ SCH ×3 (08:42→20:41)
[2022-11-14] MEDS: LANTUS PER UNIT CHARGE SQ SCH ×2 (08:43→20:42)
[2022-11-14] MEDS: CHOLESTYRAMINE LIGHT 4 GM PKT PO SCH ×2 (08:43→23:23)
[2022-11-14 10:24] LABS: Estimated Average Glucose 105 mg/dl; Hemoglobin A1C 5.3 % (4.5-5.6)
[2022-11-14] MEDS: SIMETHICONE 80 MG CHEW PO PRN ×2 (11:43→21:47)
[2022-11-14] MEDS: ACETAMINOPHEN 325 MG TAB PO PRN (12:51)
--- NOTE | 2022-11-14 14:29 | XRay Report ---
SINGLE VIEW CHEST CLINICAL HISTORY: Dyspnea FINDINGS: An AP, portable, upright chest radiograph is compared to study dated 11/13/2022. Correlation is made with abdominal CT dated 11/13/2022. The heart is enlarged. There is pulmonary vascular conges tion. There is a small right pleural effusion with elevation of the right hemidiaphragm and right bas ilar consolidation. Mild atelectasis is noted at the left lung base. No pneumothorax is seen. The bon y thorax is grossly intact. IMPRESSION: 1. Cardiomegaly with pulmonary vascular congestion. 2. Small right pleural effusion with right basilar consolidation. Correlate clinically. ACT 112: Negative or not required by law. Electronically signed by: Se Muñoz M.D. 11/14/2022 2:28 PM
--- NOTE | 2022-11-14 14:31 | XCELERA ---
[id number]
--- NOTE | 2022-11-14 14:43 | Electrocardiogram Report ---
Test Reason : Blood Pressure : / mmHG Vent. Rate : 093 BPM Atrial Rate : 093 BPM P-R Int : 146 ms QRS Dur : 134 ms QT Int : 378 ms P-R-T Axes : 038 049 055 degrees QTc Int : 469 ms Normal sinus rhythm Left atrial enlargement Non-specific intra-ventricular conduction block Poor R wave progression, consider anterior CT vs. lead placement vs. LVH Abnormal ECG No previous ECGs available Confirmed by Jaya Wallace ([id number]) on 11/14/2022 2:42:54 PM Referred By: [facility] Confirmed By:Brandon Wallace
--- NOTE | 2022-11-14 15:31 | Medical Student Progress Note ---
Date of Service November 14, 2022 Assessment & Plan (1) Hyponatremia: (2) Hypomagnesemia: (3) History of bowel resection: (4) Type 2 diabetes mellitus: (5) PTSD (post-traumatic stress disorder): (6) Hypertension: (7) GERD with esophagitis: (8) CHF (congestive heart failure): (9) Bipolar disorder: (10) ADHD: (11) Sepsis: Sepsis acute organ dysfunction status: unspecified Sepsis type: sepsis due to unspecified organism Qualified Code(s): A41.9 - Sepsis, unspecified organism (12) UTI (urinary tract infection): Hematuria presence: without hematuria Urinary tract infection type: site unspecified Qualified Code(s): N39.0 - Urinary tract infection, site not specified (13) Acute hypotension: Plan 37 [id number] with past medical history of congestive heart failure, hypertension, diabetes, neuropathy, bipolar karlene, PTSD, and depression. She presented to the ED from [facility] with concerns of nausea, vomiting, and fever. #Sepsis -Met SIRS criteria 4/4 on admission. Unclear source, possible urinary vs respiratory vs skin. WBC improving. -Cont. levofloxacin; previously switched from cefepime as patient has multiple reactions to penicillin and cephalosporin based antibiotics -blood and urine cx pending -daily CXR -Continue antiemetics and antipyretics as needed -Continue to hold fluids due to severe HFrEF. Received 1L LRs in ED. Monitor BP closely as patient arrived hypotensive but now stable at the moment. Cont. midodrine. #UTI (urinary tract infection) - UA with evidence of UTI. Urine cx pending. - cont. levofloxacin #History of bowel resection -Performed at [facility] -We will obtain records when able -Continue wound vac with morphine as needed for pain control -Continue cholestyramine bid #Hypertension -Hold antihypertensives in the setting of sepsis with low blood pressures #CHF (congestive heart failure) -Echo (11/14/22): EF 20-25%, severe global hypokineses of left ventricle -Hold metoprolol, SGLT2, torsemide due to hypotension -Cardiology consulted for medication management #GERD with esophagitis - Continue Protonix #PTSD (post-traumatic stress disorder) #Bipolar disorder -Continue lorazepam PRN -Psych consulted #Type 2 diabetes mellitus -Hold SGLT2 and metformin -cont. basal bolus insulin with sliding scale #Hypomagnesemia -replete as needed #Hyponatremia -Admission sodium of 129, suspect due to poor p.o. intake. Improving. Code Status: Full Diet: DM2, low sodium DVT ppx: Heparin Dispo: PCU Admission and Anticipated Discharge Date Admission Date: November 13, 2022 Supervising Attestation ATTESTATION I also saw the patient and confirmed galvez portions of the history and exam. I agree with the impression and plan in the medical student/resident documentation, with corrections and summary below. Upon our early afternoon exam, the patient had been moved to a bedside chair. She reports feeling better, especially since she is out of bed. Still missing some medical records, patient was able to fill in some gaps. Apparently has 9-year history of heart failure with reduced left ventricular function; she follows with cardiology in [place] and sounds as if she had a cardiac catheterization previously which was unremarkable; the etiology of her CHF is uncertain, but sounds to be nonischemic. Sounds as if she was sick with pneumonia, critically ill and intubated; subsequently developed ischemic bowel (presumed secondary to hypoperfusion, CHF plus acute illness/sepsis), underwent bowel resection, [facility], and now admitted here for recurrent sepsis. She also has a psychiatric history. She tells me that she was on lithium for period of time. She notes that she has not been getting her psychiatric medications since transferred to [facility]. She mentions being on BuSpar, 15 mg 4 times daily, she cannot her other medications. EXAM 96/69, 94, 20, 37, 97% on nasal cannula She is out of bed; seated. Alert and oriented/conversational. She speaks in full sentences without pause Heart sounds are distant, regular-auscultated rate less than what is being seen on telemetry (low 80s upon auscultation). Lung sounds are clear, nonlabored. Extremities with sock line edema (she tells me these are less than her usual) DATA Labs WBC 10.81, hemoglobin 8.9, platelet count 142 Sodium 130, potassium 3.9, BUN 23, creatinine 1.06 BNP 929 Procalcitonin 4.3 Imaging Chest x-ray from this morning shows cardiomegaly with pulmonary vascular congestion, small right pleural effusion with right basilar consolidation Echocardiogram from today shows left ventricular function of 20-25%, severe global hypokinesis of the left ventricle. Micro Blood cultures dated 11/13/2022 are pending Urine culture dated 11/13/2022 show no growth, reintubating. IMPRESSION & PLAN Sepsis, POA Currently on Levaquin given intolerability of cefepime CT of the abdomen pelvis did not show signs of intra-abdominal infection Anterior abdominal wound does not look to be infected Clinically, improved compared to admission Fluid resuscitation has been limited due to patient's compromised left ventricular function Carefully follow hemodynamics, respiratory status over next 12-24 hours HFrEF Uncertain etiology, sounds nonischemic We will attempt to get outside records Holding metoprolol in the setting of hypotension; holding furosemide given acute illness Consult cardiology Bipolar disorder Anxiety PTSD Patient interested in psychiatric consultation Will review old records to see if we can clarify her previous medications We will start BuSpar, but at lower dose given she has not taken it in about 7 to 10 days Hyponatremia Stable; serial BMP Suspect secondary to poor p.o. intake Diabetes Previously on SGL T2 and metformin Switch to basal/bolus insulin GERD Continue Protonix Postoperative wound, anterior abdominal wall Wound VAC Wound care consult Additional per resident documentation Subjective 37 [id number] with past medical history of congestive heart failure, hypertension, diabetes, neuropathy, bipolar karlene, PTSD, and depression. She presented to the ED from [facility] with concerns of nausea, vomiting, and fever. The patient was at [facility] for 8 days post bowel resection that was done for a bowel ischemia secondary to pneumonia. Currently she is complaining of nausea and vomiting. She has not been able to keep food down for several days, but is able to keep fluids down. She does not feel any improvement since yesterday in the nausea and vomiting, but admits that she is no longer feeling feverish. She is feeling somewhat short of breath, but notes this is normal for her and only slightly worse than normal. She also complains of increased frequency of urination and lower back pain. She denies burning or pain with urination or blood in urine. She also complains of left sided abdominal pain where her wound vac is located. She states that the morphine helps, bringing the pain from a 5-7.5/10 to a 3/10, but that it wears off to quickly. She requests a pain medication that will last longer. Additionally, she notes that she has been off her psych meds since admission to [facility], and has felt increased depression. There is no up to date med list available, but patient reports that she takes buspirone 15 mg QID and lorazepam 1mg QD. She is interested in seeing psychiatry in patient. Review of Systems Review of Systems: ROS is as noted in HPI. Otherwise unremarkable. Physical Exam Physical Exam: Patient is ill-appearing and in mild respiratory distress. Alert and oriented x 3. Morbid obesity. Eyes: Pupils are equal, round, and reactive to light. Respiratory: Clear to auscultation bilaterally. No rales, wheezing, or rhonchi. Coughing during exam. Cardiovascular: Normal rate and rhythm. No murmurs, rubs, or gallops. Gastrointestinal (Abdomen): Abdomen is soft and non-distended. Tender to palpation, especially on the left side near the wound vac. No guarding. Genitourinary: bilateral CVA tenderness Results & Data Vital Signs (Past 12 Hours) Vital Signs Temp Pulse Pulse Resp BP Pulse Ox O2 Del Method 11/14/22 11:00 37.0 C 94 H 20 96/69 L 98 Nasal Cannula 11/14/22 08:00 Nasal Cannula 11/14/22 08:00 98 H 11/14/22 08:00 37.3 C 98 H 22 98/69 L 97 Nasal Cannula 11/14/22 03:20 Nasal Cannula 11/14/22 03:20 107 H 11/14/22 01:53 36.9 C 103 H 22 97 Nasal Cannula 11/14/22 04:29 96 H 24 92/73 L 96 Nasal Cannula 11/14/22 03:11 97 H 24 104/73 95 Nasal Cannula O2 Flow Rate 11/14/22 11:00 3 11/14/22 08:00 3 11/14/22 08:00 11/14/22 08:00 3 11/14/22 03:20 3 11/14/22 03:20 11/14/22 01:53 11/14/22 04:29 3 11/14/22 03:11 2
--- NOTE | 2022-11-14 16:45 | Cardiology Consultation ---
Date of Consultation November 14, 2022 Assessment & Plan (1) CHF (congestive heart failure): (2) Cardiomyopathy: (3) Mitral regurgitation: (4) Pulmonary hypertension: Plan 1. Cardiomyopathy: Nonischemic. Reportedly longstanding in nature. She reported an extensive evaluation at the end time of initial diagnosis. This was several years ago. Previously well compensated. More symptoms of breathing difficulty and edema recently. She has been maintained on beta-blockade and ARB. She did report taking a daily diuretic, Lasix 40 mg twice daily. More recently she was started on Farxiga as well. These medications have been discontinued in the setting of her hypotension. 2. Acute decompensated congestive heart failure: She may have an element of mild pulmonary edema. However, she seems to be oxygenating well and denies any dyspnea at this point. There is some plethora of the IVC on her echocardiogram suggesting adequate intravascular volume. She is hypotensive and this may be related to distributive shock. Hopefully as her infection resolves will see some improvement in blood pressure. What the monitor volume status closely and consider some diuresis if her breathing deteriorates. If there is any debate regarding her intravascular volume status right heart catheterization can be entertained. 3. Valvular heart disease: Moderate mitral regurgitation 4. Pulmonary hypertension: Likely related to both left-sided heart failure and Pickwickian syndrome. Will maintain good oxygenation, monitor for volume overload and reinitiate her regimen for cardiomyopathy when the opportunity allows. History of Present Illness Reason for Consultation: Cardiomyopathy Requesting Physician: Sami Attending Physician: Rishi Melissa, History of Present Illness The patient is a 37-year-old woman with a history of a nonischemic ca rdiomyopathy who was [facility] due to concerns over infection and sepsis. The patient's history dates back many years when she was discovered to have reduced LV systolic function. By her report she underwent an evaluation at that time to include both stress testing and cardiac catheterization. She was not discovered to have coronary disease and started on medical therapy for her cardiomyopathy. Reportedly she was well compensated until few months ago. She states around that time she began have some difficulty with breathing trouble. She was admitted to [facility] with a reported pneumonia. According to the patient she was subsequently discharged but developed worsening symptoms and was sent to [facility] where she required a period of mechanical ventilation. According to the patient they drained 4 L from my lungs. 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 She was eventually transferred to [facility] for rehabilitation. However, the patient developed worsening weakness, fatigue and fevers. She also had some abdominal complaints including nausea and pain. She was sent to our facility for treatment. The patient states that leading up to the last 6 months she had not experienced symptoms of dyspnea on exertion. 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 She did not report limitations such as breathing difficulty, dizziness, palpitations or chest pain. At this time she did not report breathing trouble. She has noted some lower extremity edema but states this is much improved from her baseline. She has some abdominal discomfort but this is also improved since the wound VAC was removed. She has not been ambulatory today. Allergies Allergy/AdvReac Type Severity Reaction Status Date / Time cefepime Allergy Hives Verified 11/14/22 01:35 doxycycline Allergy Hives Verified 11/14/22 01:34 Penicillins Allergy Hives Verified 11/14/22 01:33 Home Medications Medication Instructions Recorded Confirmed Type Unobtainable 11/14/22 11/14/22 History Patient History Medical History (Updated 11/14/22 @ 16:37 by Jaya Wallace MD) ADHD Bipolar disorder CHF (congestive heart failure) GERD with esophagitis Hypertension PTSD (post-traumatic stress disorder) Type 2 diabetes mellitus Surgical History (Updated 11/14/22 @ 01:45 by Charli Wiley DO) History of bowel resection Social History Smoking Status: Former smoker Tobacco Type: Cigarettes Hx Alcohol Use: No Hx Substance Use: No Preferred Language: Faroese Communication Ability: Effective 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 Mood affect appear normal. She answered all questions appropriately. Obese HEENT: Sclerae are anicteric. Pupils are equal and reactive to light and accommodation. Extraocular movements were intact. Neuro: Cranial nerves intact Lungs: Lungs are clear to auscultation bilaterally. There are no rales wheezes or rhonchi. She has normal respiratory effort without use of accessory muscles. There is normal pulmonary excursion. Cardiac: The rhythm was regular. S1 and S2 were normal. There are no murmurs on examination. The PMI was not markedly displaced on palpation. Abdomen: Bandages in the midline. Peg tube in place. Extremities: Patient has bilateral radial pulses that are equal in intensity. There is no evidence cyanosis or clubbing. Moderate lower extremity edema bilaterally. Skin: There are no rashes noted on examination today. Multiple tattoos noted Results & Data Vital Signs (Past 12 Hours) Vital Signs Temp Pulse Pulse Resp BP Pulse Ox Pulse Ox 11/14/22 13:45 97 11/14/22 11:00 37.0 C 94 H 20 96/69 L 98 11/14/22 08:00 11/14/22 08:00 98 H 11/14/22 08:00 37.3 C 98 H 22 98/69 L 97 Pulse Ox Pulse Ox O2 Del Method O2 Flow Rate O2 Flow Rate O2 Flow Rate O2 Flow Rate 11/14/22 13:45 96 76 L 2 2 2 11/14/22 11:00 Nasal Cannula 3 11/14/22 08:00 Nasal Cannula 3 11/14/22 08:00 11/14/22 08:00 Nasal Cannula 3 Laboratory Results Abnormal Lab Results 11/13/22 11/13/22 11/13/22 18:53 18:53 18:53 WBC 17.06 H RBC 3.38 L Hgb 10.1 L Hct 31.0 L MCV 91.7 MCH 29.9 MCHC 32.6 RDW Std Deviation 69.6 H RDW Coeff of Ramiro 20.8 H Plt Count 161 MPV 9.7 Immature Gran % (Auto) 0.6 Neut % (Auto) 85.2 Lymph % (Auto) 5.0 [place] % (Auto) 9.0 Eos % (Auto) 0.0 Baso % (Auto) 0.2 Neut # (Auto) 14.52 H Lymph # (Auto) 0.86 L [place] # (Auto) 1.54 H Eos # (Auto) 0.00 Baso # (Auto) 0.04 Immature Gran # (Auto) 0.10 Polychromasia Anisocytosis Present Ovalocytes 1+ PT INR APTT PTT Ratio VBG pH VBG pCO2 VBG pO2 VBG HCO3 VBG O2 Saturation VBG Base Excess Sodium 129 L Potassium 4.8 Chloride 100 Carbon Dioxide 17 L Anion Gap 12 H BUN 24 H Creatinine 1.20 Est Cr Clr Drug Dosing 95.3 Est GFR ( Amer) 66.9 Est GFR (Non-Af Amer) 57.7 BUN/Creatinine Ratio 20.0 Glucose 142 H POC Glucose Estimat Average Glucose Hemoglobin A1c Lactate 1.7 Calcium 6.5 L Magnesium 0.7 L* Total Bilirubin 0.7 Direct Bilirubin 0.2 AST 22 ALT 25 Alkaline Phosphatase 215 H Troponin I High Sens 22.6 H B-Natriuretic Peptide Total Protein 5.6 L Albumin 2.8 L Procalcitonin Urine Color Urine Appearance Urine pH Ur Specific [place] Urine Protein Urine Glucose (UA) Urine Ketones Urine Blood Urine Nitrite Urine Bilirubin Urine Urobilinogen Ur Leukocyte Esterase Urine WBC (Auto) Urine RBC (Auto) U Hyaline Cast (Auto) U Epithel Cells (Auto) Urine Bacteria (Auto) Nasal Screen MRSA (PCR) Adenovirus (PCR) B. pertussis DNA (PCR) B.parapertussis DNA PCR C. pneumoniae DNA (PCR) Coronavirus OC43 (PCR) Coronavirus HKU1 (PCR) Coronavirus 229E (PCR) SARS-CoV-2 (PCR) Coronavirus NL63 (PCR) Human Metapneumovir PCR Influenza Type A (PCR) Influenza Type B (PCR) M. pneumoniae (PCR) Parainfluenza 1 (PCR) Parainfluenza 2 (PCR) Parainfluenza 3 (PCR) Parainfluenza 4 (PCR) RSV (PCR) Entero/Rhino (PCR) 11/13/22 11/13/22 11/13/22 18:53 19:11 19:14 WBC RBC Hgb Hct MCV MCH MCHC RDW Std Deviation RDW Coeff of Ramiro Plt Count MPV Immature Gran % (Auto) Neut % (Auto) Lymph % (Auto) [place] % (Auto) Eos % (Auto) Baso % (Auto) Neut # (Auto) Lymph # (Auto) [place] # (Auto) Eos # (Auto) Baso # (Auto) Immature Gran # (Auto) Polychromasia Anisocytosis Ovalocytes PT 14.0 H INR 1.3 H APTT 33.5 H PTT Ratio 1.2 VBG pH VBG pCO2 VBG pO2 VBG HCO3 VBG O2 Saturation VBG Base Excess Sodium Potassium Chloride Carbon Dioxide Anion Gap BUN Creatinine Est Cr Clr Drug Dosing Est GFR ( Amer) Est GFR (Non-Af Amer) BUN/Creatinine Ratio Glucose POC Glucose Estimat Average Glucose Hemoglobin A1c Lactate Calcium Magnesium Total Bilirubin Direct Bilirubin AST ALT Alkaline Phosphatase Troponin I High Sens B-Natriuretic Peptide Total Protein Albumin Procalcitonin Urine Color Dark Yellow Urine Appearance Cloudy A Urine pH 5.5 Ur Specific [place] 1.017 Urine Protein 1+ H Urine Glucose (UA) 1+ H Urine Ketones Negative Urine Blood Negative Urine Nitrite Negative Urine Bilirubin Negative Urine Urobilinogen Negative Ur Leukocyte Esterase 2+ H Urine WBC (Auto) >30 H Urine RBC (Auto) 0-4 U Hyaline Cast (Auto) 1-5 U Epithel Cells (Auto) 5-10 H Urine Bacteria (Auto) Negative Nasal Screen MRSA (PCR) Adenovirus (PCR) Not Detected B. pertussis DNA (PCR) Not Detected B.parapertussis DNA PCR Not Detected C. pneumoniae DNA (PCR) Not Detected Coronavirus OC43 (PCR) Not Detected Coronavirus HKU1 (PCR) Not Detected Coronavirus 229E (PCR) Not Detected SARS-CoV-2 (PCR) Not Detected Coronavirus NL63 (PCR) Not Detected Human Metapneumovir PCR Not Detected Influenza Type A (PCR) Not Detected Influenza Type B (PCR) Not Detected M. pneumoniae (PCR) Not Detected Parainfluenza 1 (PCR) Not Detected Parainfluenza 2 (PCR) Not Detected Parainfluenza 3 (PCR) Not Detected Parainfluenza 4 (PCR) Not Detected RSV (PCR) Not Detected Entero/Rhino (PCR) Not Detected 11/13/22 11/13/22 11/13/22 19:14 19:14 21:37 WBC RBC Hgb Hct MCV MCH MCHC RDW Std Deviation RDW Coeff of Ramiro Plt Count MPV Immature Gran % (Auto) Neut % (Auto) Lymph % (Auto) [place] % (Auto) Eos % (Auto) Baso % (Auto) Neut # (Auto) Lymph # (Auto) [place] # (Auto) Eos # (Auto) Baso # (Auto) Immature Gran # (Auto) Polychromasia Anisocytosis Ovalocytes PT INR APTT PTT Ratio VBG pH 7.33 L VBG pCO2 36 L VBG pO2 30 VBG HCO3 19 VBG O2 Saturation < 60.0 VBG Base Excess -6.2 Sodium Potassium Chloride Carbon Dioxide Anion Gap BUN Creatinine Est Cr Clr Drug Dosing Est GFR ( Amer) Est GFR (Non-Af Amer) BUN/Creatinine Ratio Glucose POC Glucose Estimat Average Glucose Hemoglobin A1c Lactate Calcium Magnesium Total Bilirubin Direct Bilirubin AST ALT Alkaline Phosphatase Troponin I High Sens 13.0 D B-Natriuretic Peptide Total Protein Albumin Procalcitonin 4.30 H Urine Color Urine Appearance Urine pH Ur Specific [place] Urine Protein Urine Glucose (UA) Urine Ketones Urine Blood Urine Nitrite Urine Bilirubin Urine Urobilinogen Ur Leukocyte Esterase Urine WBC (Auto) Urine RBC (Auto) U Hyaline Cast (Auto) U Epithel Cells (Auto) Urine Bacteria (Auto) Nasal Screen MRSA (PCR) Adenovirus (PCR) B. pertussis DNA (PCR) B.parapertussis DNA PCR C. pneumoniae DNA (PCR) Coronavirus OC43 (PCR) Coronavirus HKU1 (PCR) Coronavirus 229E (PCR) SARS-CoV-2 (PCR) Coronavirus NL63 (PCR) Human Metapneumovir PCR Influenza Type A (PCR) Influenza Type B (PCR) M. pneumoniae (PCR) Parainfluenza 1 (PCR) Parainfluenza 2 (PCR) Parainfluenza 3 (PCR) Parainfluenza 4 (PCR) RSV (PCR) Entero/Rhino (PCR) 11/14/22 11/14/22 11/14/22 00:27 02:55 04:43 WBC 10.81 H RBC 3.00 L Hgb 8.9 L Hct 26.7 L MCV 89.0 MCH 29.7 MCHC 33.3 RDW Std Deviation 68.7 H RDW Coeff of Ramiro 20.8 H Plt Count 142 MPV 10.0 Immature Gran % (Auto) 0.6 Neut % (Auto) 82.2 Lymph % (Auto) 6.9 [place] % (Auto) 10.1 Eos % (Auto) 0.0 Baso % (Auto) 0.2 Neut # (Auto) 8.89 H Lymph # (Auto) 0.75 L [place] # (Auto) 1.09 H Eos # (Auto) 0.00 Baso # (Auto) 0.02 Immature Gran # (Auto) 0.06 Polychromasia 1+ Anisocytosis Present Ovalocytes PT INR APTT PTT Ratio VBG pH VBG pCO2 VBG pO2 VBG HCO3 VBG O2 Saturation VBG Base Excess Sodium Potassium Chloride Carbon Dioxide Anion Gap BUN Creatinine Est Cr Clr Drug Dosing Est GFR ( Amer) Est GFR (Non-Af Amer) BUN/Creatinine Ratio Glucose POC Glucose Estimat Average Glucose Hemoglobin A1c Lactate Calcium Magnesium Total Bilirubin Direct Bilirubin AST ALT Alkaline Phosphatase Troponin I High Sens B-Natriuretic Peptide 929 H Total Protein Albumin Procalcitonin Urine Color Urine Appearance Urine pH Ur Specific [place] Urine Protein Urine Glucose (UA) Urine Ketones Urine Blood Urine Nitrite Urine Bilirubin Urine Urobilinogen Ur Leukocyte Esterase Urine WBC (Auto) Urine RBC (Auto) U Hyaline Cast (Auto) U Epithel Cells (Auto) Urine Bacteria (Auto) Nasal Screen MRSA (PCR) Negative Adenovirus (PCR) B. pertussis DNA (PCR) B.parapertussis DNA PCR C. pneumoniae DNA (PCR) Coronavirus OC43 (PCR) Coronavirus HKU1 (PCR) Coronavirus 229E (PCR) SARS-CoV-2 (PCR) Coronavirus NL63 (PCR) Human Metapneumovir PCR Influenza Type A (PCR) Influenza Type B (PCR) M. pneumoniae (PCR) Parainfluenza 1 (PCR) Parainfluenza 2 (PCR) Parainfluenza 3 (PCR) Parainfluenza 4 (PCR) RSV (PCR) Entero/Rhino (PCR) 11/14/22 11/14/22 11/14/22 04:43 04:43 04:43 WBC RBC Hgb Hct MCV MCH MCHC RDW Std Deviation RDW Coeff of Ramiro Plt Count MPV Immature Gran % (Auto) Neut % (Auto) Lymph % (Auto) [place] % (Auto) Eos % (Auto) Baso % (Auto) Neut # (Auto) Lymph # (Auto) [place] # (Auto) Eos # (Auto) Baso # (Auto) Immature Gran # (Auto) Polychromasia Anisocytosis Ovalocytes PT INR APTT PTT Ratio VBG pH VBG pCO2 VBG pO2 VBG HCO3 VBG O2 Saturation VBG Base Excess Sodium 130 L Potassium 3.9 Chloride 102 Carbon Dioxide 17 L Anion Gap 11 BUN 23 Creatinine 1.06 Est Cr Clr Drug Dosing 105.0 Est GFR ( Amer) 77.7 Est GFR (Non-Af Amer) 67.0 BUN/Creatinine Ratio 21.7 H Glucose 111 H POC Glucose Estimat Average Glucose 105 Hemoglobin A1c 5.3 Lactate Calcium 6.4 L Magnesium 1.3 L Total Bilirubin Direct Bilirubin AST ALT Alkaline Phosphatase Troponin I High Sens B-Natriuretic Peptide Total Protein Albumin Procalcitonin Urine Color Urine Appearance Urine pH Ur Specific [place] Urine Protein Urine Glucose (UA) Urine Ketones Urine Blood Urine Nitrite Urine Bilirubin Urine Urobilinogen Ur Leukocyte Esterase Urine WBC (Auto) Urine RBC (Auto) U Hyaline Cast (Auto) U Epithel Cells (Auto) Urine Bacteria (Auto) Nasal Screen MRSA (PCR) Adenovirus (PCR) B. pertussis DNA (PCR) B.parapertussis DNA PCR C. pneumoniae DNA (PCR) Coronavirus OC43 (PCR) Coronavirus HKU1 (PCR) Coronavirus 229E (PCR) SARS-CoV-2 (PCR) Coronavirus NL63 (PCR) Human Metapneumovir PCR Influenza Type A (PCR) Influenza Type B (PCR) M. pneumoniae (PCR) Parainfluenza 1 (PCR) Parainfluenza 2 (PCR) Parainfluenza 3 (PCR) Parainfluenza 4 (PCR) RSV (PCR) Entero/Rhino (PCR) 11/14/22 11/14/22 11/14/22 07:26 11:18 15:19 WBC RBC Hgb Hct MCV MCH MCHC RDW Std Deviation RDW Coeff of Ramiro Plt Count MPV Immature Gran % (Auto) Neut % (Auto) Lymph % (Auto) [place] % (Auto) Eos % (Auto) Baso % (Auto) Neut # (Auto) Lymph # (Auto) [place] # (Auto) Eos # (Auto) Baso # (Auto) Immature Gran # (Auto) Polychromasia Anisocytosis Ovalocytes PT INR APTT PTT Ratio VBG pH VBG pCO2 VBG pO2 VBG HCO3 VBG O2 Saturation VBG Base Excess Sodium Potassium Chloride Carbon Dioxide Anion Gap BUN Creatinine Est Cr Clr Drug Dosing Est GFR ( Amer) Est GFR (Non-Af Amer) BUN/Creatinine Ratio Glucose POC Glucose 117 H 111 H 114 H Estimat Average Glucose Hemoglobin A1c Lactate Calcium Magnesium Total Bilirubin Direct Bilirubin AST ALT Alkaline Phosphatase Troponin I High Sens B-Natriuretic Peptide Total Protein Albumin Procalcitonin Urine Color Urine Appearance Urine pH Ur Specific [place] Urine Protein Urine Glucose (UA) Urine Ketones Urine Blood Urine Nitrite Urine Bilirubin Urine Urobilinogen Ur Leukocyte Esterase Urine WBC (Auto) Urine RBC (Auto) U Hyaline Cast (Auto) U Epithel Cells (Auto) Urine Bacteria (Auto) Nasal Screen MRSA (PCR) Adenovirus (PCR) B. pertussis DNA (PCR) B.parapertussis DNA PCR C. pneumoniae DNA (PCR) Coronavirus OC43 (PCR) Coronavirus HKU1 (PCR) Coronavirus 229E (PCR) SARS-CoV-2 (PCR) Coronavirus NL63 (PCR) Human Metapneumovir PCR Influenza Type A (PCR) Influenza Type B (PCR) M. pneumoniae (PCR) Parainfluenza 1 (PCR) Parainfluenza 2 (PCR) Parainfluenza 3 (PCR) Parainfluenza 4 (PCR) RSV (PCR) Entero/Rhino (PCR) Diagnostic Findings CT scan of the abdomen revealed appropriately place PEG tube without other evidence of intraperitoneal air or inflammation Echocardiogram performed today revealed ejection fraction 20 25%. Mild left ventricular dilation. Moderate left atrial dilation. Moderate mitral regurgitation. Moderate to severe tricuspid regurgitation. Elevated estimated right ventricular pressures of 50-60 mm of mercury with mildly dilated inferior vena cava Chest x-ray demonstrated cardiomegaly with pulmonary vascular congestion. ECG Additional Comments: EKG demonstrated sinus rhythm with left atrial enlargement. QRS was widened consistent with a left bundle branch block. PG Care Time/CCT Total # of Minutes Spent Total Time Spent with Patient: Total time spent is greater than 50% in coordination of care (as documented) at patient's floor/unit and/or counseling patient: Coding Level of Care Code 87051 IN/OBS CONSULT LVL 4,60M Diagnoses CHF (congestive heart failure) I50.9 Cardiomyopathy I42.9 Mitral regurgitation I34.0 Pulmonary hypertension I27.20
[2022-11-14] MEDS: oxyCODONE/ACETAMINOPHEN 5mg/325mg TAB PO PRN (18:45)
--- NOTE | 2022-11-14 19:16 | XRay Report ---
SINGLE VIEW CHEST CLINICAL HISTORY: Dyspnea FINDINGS: An AP, portable, upright chest radiograph is compared to study performed earlier the same d ay 11/14/2022. Correlation is made with abdominal CT dated 11/13/2022. The examination is degraded by p ortable technique and patient rotation. The heart is enlarged. There is pulmonary vascular congestio n. There is a small right pleural effusion with elevation of the right hemidiaphragm and right basila r consolidation. Mild atelectasis is noted at the left lung base. No pneumothorax is seen. The bony t horax is grossly intact. IMPRESSION: 1. Cardiomegaly with pulmonary vascular congestion. This is similar to today's earlier examination. 2. Small right pleural effusion with right basilar consolidation. Correlate clinically. ACT 112: Negative or not required by law. Electronically signed by: Se Muñoz M.D. 11/14/2022 7:15 PM
[2022-11-14] MEDS ORDERED: diphenhydrAMINE Capsule 25 MG CAP PO ONE (21:15)
[2022-11-15] MEDS: oxyCODONE/ACETAMINOPHEN 5mg/325mg TAB PO PRN ×4 (03:24→20:55)
[2022-11-15 04:57] LABS: Basophils # (auto) 0.02 K/uL (0.00-0.20); Basophils % (auto) 0.2 %; Hematocrit (blood only) 28.9 % (37.0-47.0); Hemoglobin 9.4 g/dl (12.0-16.0); Immature Granulocytes # (auto) 0.05 K/uL (0.01-0.20); Immature Granulocytes % (auto) 0.5 %; Lymphocytes # (auto) 0.84 K/uL (1.20-3.40); Lymphocytes % (auto) 8.7 %; Mean Corpuscular Hemoglobin 29.4 pg (25.0-34.0); Mean Corpuscular Hgb Conc 32.5 g/dL (32.0-36.0); Mean Corpuscular Volume 90.3 fL (80.0-100.0); Mean Platelet Volume 9.7 fL (9.4-12.4); Monocytes % (auto) 11.3 %; Neutrophils % (auto) 79.3 %; Platelet Count 145 K/uL (130-400); RDW Coefficient of Variation 20.5 % (11.5-14.5); RDW Standard Deviation 67.6 fL (36.4-46.3); White Blood Count 9.71 K/ul (4.8-10.8)
[2022-11-15 05:13] LABS: Albumin Globulin Ratio 1.1 (0.9-2); Albumin Level 3.1 gm/dl (3.4-5.0); Anisocytosis Present; BUN Creatinine Ratio 23.5 (10-20); Bilirubin,Total 0.8 mg/dl (0.2-1.0); Creatinine Clr Calc Pharmacy 130.9 ml/min; Echinocytes 1+; Est GFR (African American) 101.5 ml/min; Est GFR (Non-African American) 87.5 ml/min; Globulin 2.7 gm/dl (2.5-4.0); Magnesium 1.6 mg/dl (1.7-2.4); Potassium 3.8 mmol/L (3.5-5.1); Total Protein 5.8 gm/dl (6.0-8.3)
[2022-11-15 05:32] LABS: INR 1.3 (0.9-1.1); Prothrombin Time 13.8 Seconds (9.0-12.0)
[2022-11-15] MEDS ORDERED: MAGNESIUM SULFATE / D5W 1 GM/100 ML BAG IV ONE (07:10)
--- NOTE | 2022-11-15 07:19 | Hospitalist Progress Note ---
Date of Service November 15, 2022 Assessment & Plan (1) Sepsis: (2) UTI (urinary tract infection): (3) History of bowel resection: (4) Acute hypotension: (5) Bipolar disorder: (6) PTSD (post-traumatic stress disorder): (7) Type 2 diabetes mellitus: (8) Hypomagnesemia: (9) Hyponatremia: (10) CHF (congestive heart failure): (11) GERD with esophagitis: Plan #Sepsis Levofloxacin f/u urine and blood cx Minimal fluid resuscitation 03/17 HFrEF 20-25% antiemetics and antipyretics as needed procalcitonin continues to improve CXR in ED demonstrated RLL infiltrate, no other obvious source #UTI UA with evidence of UTI No growth urine cx @ 24hrs #Hypotension Monitor closely Holding fluid resuscitation in setting of HFrEF #CHF Echo 11/14/22 demonstrates EF 20-25% IVC imaging demonstrates adequate intravascular volume Dailly CXR to help evaluate fluid status Metoprolol, SGLT2, torsemide #Hx Bowel Resection Wound care to manage wound vac in place Peg tube present #Bipolar I Lorazepam PRN Unclear what psych meds pt has taken in the past States was on buspar 15mg QID Psych consult discussed with pt #PTSD As above #T2DM SGLT2 and metformin held Basal bolus and SSI #Hypomagnesemia Replete as needed #Hyponatremia Stable at 130 Encourage PO intake #GERD Protonix Admission and Anticipated Discharge Date Admission Date: November 13, 2022 Supervising Physician Co-Signing Physician Notes ATTESTATION I also saw the patient and confirmed galvez portions of the history and exam. I agree with the impression and plan as noted in the resident documentation. She subjectively feels better today. Less shortness of breath. She is again in the bedside chair; she feels better in the bedside chair as compared to the bed. She has been seen in consultation by both psychiatry and cardiology; consultations reviewed. EXAM 115/71, 98, 18, 36.6, 92% room air She is out of bed; seated. Alert and oriented/conversational. She speaks in full sentences without pause Heart sounds are distant, regular rhythm, slightly tachycardic. Lung sounds decreased right lower lobe, otherwise clear Extremities with sock line edema (she tells me these are less than her usual); maybe slightly increased compared to yesterday. DATA Labs WBC 9.71, hemoglobin 9.4, platelet count 145 Sodium 130, potassium 3.8, BUN 20, creatinine 0.85 Procalcitonin 2.18 Imaging Chest x-ray from this morning shows improvement in vascular congestion; right lower lobe opacity Echocardiogram from yesterday shows left ventricular function of 20-25%, severe global hypokinesis of the left ventricle. Micro Blood cultures dated 11/13/2022 showed no growth at 24 hours Urine culture dated 11/13/2022 shows no growth. IMPRESSION & PLAN Sepsis, POA Generally seems to be improving, both subjectively and by objective measures (improving hemodynamics, decreasing procalcitonin) Suspect pulmonary source Continue Levaquin HFrEF Nonischemic Cardiology consultation appreciated Holding metoprolol in the setting of hypotension; holding torsemide given acute illness Chest x-ray improved today; she looks to be euvolemic If hemodynamics continue to improve, would likely resume some amount of loop diuretic tomorrow Also, blood pressure tolerates, reintroduce beta-izzy Bipolar disorder Anxiety PTSD Psychiatric consultation appreciated Hyponatremia Stable; serial BMP Suspect secondary to poor p.o. intake; may also be reflection of volume status Diabetes Previously on SGL T2 and metformin Switch to basal/bolus insulin GERD Continue Protonix Postoperative wound, anterior abdominal wall Wound VAC Wound care consult Subjective 37 [id number] with past medical history of congestive heart failure, hypertension, diabetes, neuropathy, bipolar karlene, PTSD, and depression. She presented to the ED from [facility] with concerns of nausea, vomiting, and fever. The patient was at [facility] for 8 days post bowel resection that was done for a bowel ischemia secondary to pneumonia. Admitted for weakness, fever, fatigue. No acute events overnight. This AM:Pt states she is feeling better. Very concerned about regressing in the progress she made while at rehab. Remains tachycardic and hypotensive. Interval CXR improved from yesterday. Review of Systems Review of Systems: reviewed, per HPI Physical Exam Physical Exam: General: patient resting comfortably, NAD, non-toxic in appearance, AA&O x 4, answers questions appropriately and follows commands. Skin: warm, dry, intact HEENT: NC/AT, anicteric sclera, conjunctiva without injection, moist mucus membranes, trachea midline, no thyromegaly, no JVD Heart: +S1/S2, regular, no m/r/g Lungs: R side decreased breath sounds, mild rales Abd: +BS, soft, TTP. PEG in place. Wound vac in place. Ext: warm, no clubbing/cyanosis or edema Neuro: nonfocal, patient AA&O x 4, speech intact, no facial droop, moving all extremities on command. Results & Data Results & Data Vital Signs (Past 12 Hours) Vital Signs Temp Pulse Resp BP Pulse Ox O2 Del Method O2 Flow Rate 11/15/22 03:11 37.2 C 101 H 16 94 Nasal Cannula 3 11/14/22 20:00 Nasal Cannula 3 11/14/22 23:33 37.2 C 96 H 16 91/60 L 92 Nasal Cannula 3 11/14/22 20:00 37.2 C 100 H 16 156/94 H 97 Nasal Cannula 3 Laboratory Results 11/15/22 11/15/22 11/15/22 Range/Units 11:35 07:33 04:32 WBC (4.8-10.8) K/ul RBC (4.20-5.40) M/uL Hgb (12.0-16.0) g/dl Hct (37.0-47.0) % MCV (80.0-100.0) fL MCH (25.0-34.0) pg MCHC (32.0-36.0) g/dL RDW Std Deviation (36.4-46.3) fL RDW Coeff of Ramiro (11.5-14.5) % Plt Count (130-400) K/uL MPV (9.4-12.4) fL Immature Gran % (Auto) % Neut % (Auto) % Lymph % (Auto) % [place] % (Auto) % Eos % (Auto) % Baso % (Auto) % Neut # (Auto) (1.40-6.50) K/uL Lymph # (Auto) (1.20-3.40) K/uL [place] # (Auto) (0.11-0.59) K/uL Eos # (Auto) (0.00-0.50) K/uL Baso # (Auto) (0.00-0.20) K/uL Immature Gran # (Auto) (0.01-0.20) K/uL Anisocytosis Echinocytes PT 13.8 H (9.0-12.0) Seconds INR 1.3 H (0.9-1.1) Sodium (136-145) mmol/L Potassium (3.5-5.1) mmol/L Chloride (98-107) mmol/L Carbon Dioxide (21-32) mmol/L Anion Gap (3-11) BUN (6-23) mg/dl Creatinine (0.6-1.2) mg/dl Est Cr Clr Drug Dosing ml/min Est GFR ( Amer) ml/min Est GFR (Non-Af Amer) ml/min BUN/Creatinine Ratio (10-20) Glucose (70-99(Fasting)) mg/dl POC Glucose 103 H 76 (70-99) mg/dl Calcium (8.6-10.3) mg/dl Magnesium (1.7-2.4) mg/dl Total Bilirubin (0.2-1.0) mg/dl AST (13-39) U/L ALT (7-52) U/L Alkaline Phosphatase (34-104) U/L Total Protein (6.0-8.3) gm/dl Albumin (3.4-5.0) gm/dl Globulin (2.5-4.0) gm/dl Albumin/Globulin Ratio (0.9-2) Procalcitonin (0-0.5) ng/ml 11/15/22 11/15/22 11/15/22 Range/Units 04:32 04:32 04:32 WBC 9.71 (4.8-10.8) K/ul RBC 3.20 L (4.20-5.40) M/uL Hgb 9.4 L (12.0-16.0) g/dl Hct 28.9 L (37.0-47.0) % MCV 90.3 (80.0-100.0) fL MCH 29.4 (25.0-34.0) pg MCHC 32.5 (32.0-36.0) g/dL RDW Std Deviation 67.6 H (36.4-46.3) fL RDW Coeff of Ramiro 20.5 H (11.5-14.5) % Plt Count 145 (130-400) K/uL MPV 9.7 (9.4-12.4) fL Immature Gran % (Auto) 0.5 % Neut % (Auto) 79.3 % Lymph % (Auto) 8.7 % [place] % (Auto) 11.3 % Eos % (Auto) 0.0 % Baso % (Auto) 0.2 % Neut # (Auto) 7.70 H (1.40-6.50) K/uL Lymph # (Auto) 0.84 L (1.20-3.40) K/uL [place] # (Auto) 1.10 H (0.11-0.59) K/uL Eos # (Auto) 0.00 (0.00-0.50) K/uL Baso # (Auto) 0.02 (0.00-0.20) K/uL Immature Gran # (Auto) 0.05 (0.01-0.20) K/uL Anisocytosis Present Echinocytes 1+ PT (9.0-12.0) Seconds INR (0.9-1.1) Sodium 130 L (136-145) mmol/L Potassium 3.8 (3.5-5.1) mmol/L Chloride 102 (98-107) mmol/L Carbon Dioxide 18 L (21-32) mmol/L Anion Gap 10 (3-11) BUN 20 (6-23) mg/dl Creatinine 0.85 (0.6-1.2) mg/dl Est Cr Clr Drug Dosing 130.9 ml/min Est GFR ( Amer) 101.5 ml/min Est GFR (Non-Af Amer) 87.5 ml/min BUN/Creatinine Ratio 23.5 H (10-20) Glucose 83 (70-99(Fasting)) mg/dl POC Glucose (70-99) mg/dl Calcium 8.0 L (8.6-10.3) mg/dl Magnesium 1.6 L (1.7-2.4) mg/dl Total Bilirubin 0.8 (0.2-1.0) mg/dl AST 16 (13-39) U/L ALT 19 (7-52) U/L Alkaline Phosphatase 202 H (34-104) U/L Total Protein 5.8 L (6.0-8.3) gm/dl Albumin 3.1 L (3.4-5.0) gm/dl Globulin 2.7 (2.5-4.0) gm/dl Albumin/Globulin Ratio 1.1 (0.9-2) Procalcitonin 2.18 H (0-0.5) ng/ml 11/14/22 11/14/22 Range/Units 20:35 15:19 WBC (4.8-10.8) K/ul RBC (4.20-5.40) M/uL Hgb (12.0-16.0) g/dl Hct (37.0-47.0) % MCV (80.0-100.0) fL MCH (25.0-34.0) pg MCHC (32.0-36.0) g/dL RDW Std Deviation (36.4-46.3) fL RDW Coeff of Ramiro (11.5-14.5) % Plt Count (130-400) K/uL MPV (9.4-12.4) fL Immature Gran % (Auto) % Neut % (Auto) % Lymph % (Auto) % [place] % (Auto) % Eos % (Auto) % Baso % (Auto) % Neut # (Auto) (1.40-6.50) K/uL Lymph # (Auto) (1.20-3.40) K/uL [place] # (Auto) (0.11-0.59) K/uL Eos # (Auto) (0.00-0.50) K/uL Baso # (Auto) (0.00-0.20) K/uL Immature Gran # (Auto) (0.01-0.20) K/uL Anisocytosis Echinocytes PT (9.0-12.0) Seconds INR (0.9-1.1) Sodium (136-145) mmol/L Potassium (3.5-5.1) mmol/L Chloride (98-107) mmol/L Carbon Dioxide (21-32) mmol/L Anion Gap (3-11) BUN (6-23) mg/dl Creatinine (0.6-1.2) mg/dl Est Cr Clr Drug Dosing ml/min Est GFR ( Amer) ml/min Est GFR (Non-Af Amer) ml/min BUN/Creatinine Ratio (10-20) Glucose (70-99(Fasting)) mg/dl POC Glucose 120 H 114 H (70-99) mg/dl Calcium (8.6-10.3) mg/dl Magnesium (1.7-2.4) mg/dl Total Bilirubin (0.2-1.0) mg/dl AST (13-39) U/L ALT (7-52) U/L Alkaline Phosphatase (34-104) U/L Total Protein (6.0-8.3) gm/dl Albumin (3.4-5.0) gm/dl Globulin (2.5-4.0) gm/dl Albumin/Globulin Ratio (0.9-2) Procalcitonin (0-0.5) ng/ml Resident Activity Tracking Resident Involvement: Resident Care Provided Care Provided: Adult [facility] Medicine (1) Sepsis Sepsis acute organ dysfunction status: unspecified Sepsis type: sepsis due to unspecified organism Qualified Code(s): A41.9 - Sepsis, unspecified organism (2) UTI (urinary tract infection) Hematuria presence: without hematuria Urinary tract infection type: site unspecified Qualified Code(s): N39.0 - Urinary tract infection, site not specified
--- NOTE | 2022-11-15 07:46 | XRay Report ---
XR chest 1V portable CLINICAL HISTORY: Fluid status evaluation TECHNIQUE: Single frontal radiograph of the chest was obtained. Comparison: Comparison is made to chest radiograph 11/14/2022 FINDINGS: No lines and tubes are seen. Cardiomegaly is noted. Right lung base airspace opacity is unchanged. Pr eviously noted pulmonary vascular congestion is improved. No evidence of pleural effusion or pneumoth orax. IMPRESSION: 1. Interval improvement of pulmonary vascular congestion. 2. Right lung base airspace opacity likely represents atelectasis with superimposed aspiration/pneum onia. ACT 112: Negative or not required by law. Electronically signed by: Jae Francois M.D. 11/15/2022 7:45 AM
[2022-11-15] MEDS: INSULIN ASPART PER UNIT CHARGE SC SCH ×4 (08:46→20:57)
[2022-11-15] MEDS: SIMETHICONE 80 MG CHEW PO PRN (09:01)
[2022-11-15] MEDS: HEPARIN SOD 5,000 UNIT/0.5 ML VIAL SQ SCH ×2 (09:02→20:56)
[2022-11-15] MEDS: PANTOprazole 40 MG TAB PO SCH (09:03)
[2022-11-15] MEDS: MIDODRINE HCL 2.5 MG TAB PO SCH ×3 (09:03→16:55)
[2022-11-15] MEDS: CHOLESTYRAMINE LIGHT 4 GM PKT PO SCH ×2 (09:04→20:55)
[2022-11-15] MEDS: LANTUS PER UNIT CHARGE SQ SCH ×2 (09:13→20:58)
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
--- NOTE | 2022-11-15 16:17 | Cardiology Progress Note ---
Date of Service November 15, 2022 Assessment & Plan (1) CHF (congestive heart failure): (2) Cardiomyopathy: (3) Mitral regurgitation: (4) Pulmonary hypertension: Plan 1. Cardiomyopathy: Nonischemic. Will restart medical therapy once her blood pressure remained stable. 2. Acute decompensated congestive heart failure: She seems well compensated. Renal function normal. Negative fluid balance yesterday. If there is any debate regarding her intravascular volume status right heart catheterization can be entertained. 3. Valvular heart disease: Moderate mitral regurgitation 4. Pulmonary hypertension: Likely related to both left-sided heart failure and Pickwickian syndrome. Will maintain good oxygenation, monitor for volume overload and reinitiate her regimen for cardiomyopathy when the opportunity allows. Admission and Anticipated Discharge Date Admission Date: November 13, 2022 Subjective This afternoon the patient claims to be feeling better. She was minimally ambulatory to a chair. Currently sitting up in chair. She did not report respiratory distress her breathing difficulty. Some abdominal stiffness. Overall improved. Review of Systems Review of Systems: Per HPI Physical Exam Physical Exam: She is alert and oriented x3. Mood affect appear normal. She answered all questions appropriately. Obese HEENT: Sclerae are anicteric. Pupils are equal and reactive to light and accommodation. Extraocular movements were intact. Neuro: Cranial nerves intact Lungs: Lungs are clear to auscultation bilaterally. There are no rales wheezes or rhonchi. She has normal respiratory effort without use of accessory muscles. There is normal pulmonary excursion. Cardiac: The rhythm was regular. S1 and S2 were normal. There are no murmurs on examination. The PMI was not markedly displaced on palpation. Extremities: Patient has bilateral radial pulses that are equal in intensity. There is no evidence cyanosis or clubbing. Results & Data Vital Signs (Past 12 Hours) Vital Signs Temp Pulse Pulse Resp BP BP Pulse Ox 11/15/22 16:10 36.6 C 98 H 18 115/71 96 11/15/22 12:00 115 H 22 11/15/22 11:45 111 H 30 H 11/15/22 11:30 116 H 17 11/15/22 11:15 102 H 21 11/15/22 11:06 105/69 11/15/22 11:06 100 H 29 H 11/15/22 11:04 63/46 L 11/15/22 11:04 100 H 30 H 11/15/22 11:00 97 H 24 97 11/15/22 10:45 102 H 22 11/15/22 10:30 98 H 21 11/15/22 10:15 98 H 25 H 11/15/22 10:00 100 H 25 H 11/15/22 09:45 103 H 23 11/15/22 09:30 103 H 22 11/15/22 09:19 100/71 11/15/22 09:19 100 H 27 H 11/15/22 09:15 104 H 24 11/15/22 09:00 104 H 30 H 11/15/22 08:45 107 H 26 H 11/15/22 08:30 104 H 24 11/15/22 08:15 102 H 24 11/15/22 08:00 104 H 20 11/15/22 07:45 104 H 28 H 11/15/22 07:30 102 H 29 H 11/15/22 07:15 102 H 23 11/15/22 07:00 103 H 26 H 11/15/22 06:45 100 H 26 H 11/15/22 06:30 101 H 34 H 11/15/22 06:15 102 H 22 11/15/22 06:00 105 H 30 H 11/15/22 05:45 103 H 20 11/15/22 05:30 104 H 22 11/15/22 05:15 105 H 22 11/15/22 05:00 102 H 22 11/15/22 04:45 103 H 25 H 11/15/22 04:30 106 H 23 11/15/22 04:15 104 H 23 11/15/22 10:28 O2 Del Method O2 Flow Rate 11/15/22 16:10 Room Air 11/15/22 12:00 11/15/22 11:45 11/15/22 11:30 11/15/22 11:15 11/15/22 11:06 11/15/22 11:06 11/15/22 11:04 11/15/22 11:04 11/15/22 11:00 11/15/22 10:45 11/15/22 10:30 11/15/22 10:15 11/15/22 10:00 11/15/22 09:45 11/15/22 09:30 11/15/22 09:19 11/15/22 09:19 11/15/22 09:15 11/15/22 09:00 11/15/22 08:45 11/15/22 08:30 11/15/22 08:15 11/15/22 08:00 11/15/22 07:45 11/15/22 07:30 11/15/22 07:15 11/15/22 07:00 11/15/22 06:45 11/15/22 06:30 11/15/22 06:15 11/15/22 06:00 11/15/22 05:45 11/15/22 05:30 11/15/22 05:15 11/15/22 05:00 11/15/22 04:45 11/15/22 04:30 11/15/22 04:15 11/15/22 10:28 Nasal Cannula 3 Laboratory Results Abnormal Lab Results 11/14/22 11/15/22 11/15/22 20:35 04:32 04:32 WBC RBC Hgb Hct MCV MCH MCHC RDW Std Deviation RDW Coeff of Ramiro Plt Count MPV Immature Gran % (Auto) Neut % (Auto) Lymph % (Auto) [place] % (Auto) Eos % (Auto) Baso % (Auto) Neut # (Auto) Lymph # (Auto) [place] # (Auto) Eos # (Auto) Baso # (Auto) Immature Gran # (Auto) Anisocytosis Echinocytes PT INR Sodium 130 L Potassium 3.8 Chloride 102 Carbon Dioxide 18 L Anion Gap 10 BUN 20 Creatinine 0.85 Est Cr Clr Drug Dosing 130.9 Est GFR ( Amer) 101.5 Est GFR (Non-Af Amer) 87.5 BUN/Creatinine Ratio 23.5 H Glucose 83 POC Glucose 120 H Calcium 8.0 L Magnesium 1.6 L Total Bilirubin 0.8 AST 16 ALT 19 Alkaline Phosphatase 202 H Total Protein 5.8 L Albumin 3.1 L Globulin 2.7 Albumin/Globulin Ratio 1.1 Procalcitonin 2.18 H 11/15/22 11/15/22 11/15/22 04:32 04:32 07:33 WBC 9.71 RBC 3.20 L Hgb 9.4 L Hct 28.9 L MCV 90.3 MCH 29.4 MCHC 32.5 RDW Std Deviation 67.6 H RDW Coeff of Ramiro 20.5 H Plt Count 145 MPV 9.7 Immature Gran % (Auto) 0.5 Neut % (Auto) 79.3 Lymph % (Auto) 8.7 [place] % (Auto) 11.3 Eos % (Auto) 0.0 Baso % (Auto) 0.2 Neut # (Auto) 7.70 H Lymph # (Auto) 0.84 L [place] # (Auto) 1.10 H Eos # (Auto) 0.00 Baso # (Auto) 0.02 Immature Gran # (Auto) 0.05 Anisocytosis Present Echinocytes 1+ PT 13.8 H INR 1.3 H Sodium Potassium Chloride Carbon Dioxide Anion Gap BUN Creatinine Est Cr Clr Drug Dosing Est GFR ( Amer) Est GFR (Non-Af Amer) BUN/Creatinine Ratio Glucose POC Glucose 76 Calcium Magnesium Total Bilirubin AST ALT Alkaline Phosphatase Total Protein Albumin Globulin Albumin/Globulin Ratio Procalcitonin 11/15/22 11:35 WBC RBC Hgb Hct MCV MCH MCHC RDW Std Deviation RDW Coeff of Ramiro Plt Count MPV Immature Gran % (Auto) Neut % (Auto) Lymph % (Auto) [place] % (Auto) Eos % (Auto) Baso % (Auto) Neut # (Auto) Lymph # (Auto) [place] # (Auto) Eos # (Auto) Baso # (Auto) Immature Gran # (Auto) Anisocytosis Echinocytes PT INR Sodium Potassium Chloride Carbon Dioxide Anion Gap BUN Creatinine Est Cr Clr Drug Dosing Est GFR ( Amer) Est GFR (Non-Af Amer) BUN/Creatinine Ratio Glucose POC Glucose 103 H Calcium Magnesium Total Bilirubin AST ALT Alkaline Phosphatase Total Protein Albumin Globulin Albumin/Globulin Ratio Procalcitonin PG Care Time/CCT Total # of Minutes Spent Total Time Spent with Patient: Total time spent is greater than 50% in coordination of care (as documented) at patient's floor/unit and/or counseling patient: Coding Level of Care Code 36495 SUB INP/OBS CARE 2/35MIN Diagnoses CHF (congestive heart failure) I50.9 Cardiomyopathy I42.9 Mitral regurgitation I34.0 Pulmonary hypertension I27.20
[2022-11-15] MEDS: busPIRone 5 MG TAB PO SCH (20:55)
[2022-11-15] MEDS: ACETAMINOPHEN 325 MG TAB PO PRN (23:06)
[2022-11-15] MEDS: levoFLOXacin/D5W 750 MG/150 ML BAG IV SCH (23:24)
[2022-11-16] MEDS: LORazepam 0.5 MG TAB PO PRN ×2 (01:15→16:39)
[2022-11-16 06:47] LABS: Basophils # (auto) 0.02 K/uL (0.00-0.20); Basophils % (auto) 0.2 %; Hematocrit (blood only) 29.7 % (37.0-47.0); Hemoglobin 9.7 g/dl (12.0-16.0); Immature Granulocytes # (auto) 0.05 K/uL (0.01-0.20); Immature Granulocytes % (auto) 0.5 %; Lymphocytes # (auto) 1.09 K/uL (1.20-3.40); Lymphocytes % (auto) 11.6 %; Mean Corpuscular Hemoglobin 29.1 pg (25.0-34.0); Mean Corpuscular Hgb Conc 32.7 g/dL (32.0-36.0); Mean Corpuscular Volume 89.2 fL (80.0-100.0); Mean Platelet Volume 9.9 fL (9.4-12.4); Monocytes # (auto) 1.06 K/uL (0.11-0.59); Monocytes % (auto) 11.2 %; Neutrophils # (auto) 7.21 K/uL (1.40-6.50); Neutrophils % (auto) 76.5 %; Platelet Count 180 K/uL (130-400); RDW Coefficient of Variation 20.5 % (11.5-14.5); RDW Standard Deviation 67.7 fL (36.4-46.3); Red Blood Count 3.33 M/uL (4.20-5.40); White Blood Count 9.43 K/ul (4.8-10.8)
--- NOTE | 2022-11-16 06:52 | Hospitalist Progress Note ---
Date of Service November 16, 2022 Assessment & Plan (1) Sepsis: (2) UTI (urinary tract infection): (3) History of bowel resection: (4) Acute hypotension: (5) Bipolar disorder: (6) PTSD (post-traumatic stress disorder): (7) Type 2 diabetes mellitus: (8) Hypomagnesemia: (9) Hyponatremia: (10) CHF (congestive heart failure): (11) GERD with esophagitis: Plan #Sepsis Levofloxacin day 3 transition to PO, plan for total 7 days f/u urine and blood cx Minimal fluid resuscitation / HFrEF 20-25% antiemetics and antipyretics as needed procalcitonin continues to improve CXR in ED demonstrated RLL infiltrate, no other obvious source #UTI UA with evidence of UTI No growth urine cx @ 24hrs #Hypotension Monitor closely Holding fluid resuscitation in setting of HFrEF #CHF Echo 11/14/22 demonstrates EF 20-25% IVC imaging demonstrates adequate intravascular volume Dailly CXR to help evaluate fluid status Torsemide 10mg today Continue to hold Metoprolol, SGLT2 #Hx Bowel Resection Wound care to manage wound vac in place Peg tube present #Bipolar I Lorazepam 0.5 PRN Buspar 7.5mg TID Will add abilify 5mg today, plan to increase by 5mg q2 days until goal of 15mg daily #PTSD As above #T2DM SGLT2 and metformin held Basal bolus and SSI #Hypomagnesemia Replete as needed #Hyponatremia Stable at 130 Encourage PO intake #GERD Protonix Admission and Anticipated Discharge Date Admission Date: November 13, 2022 Supervising Physician Co-Signing Physician Notes ATTESTATION I also saw the patient and confirmed galvez portions of the history and exam. I agree with the impression and plan as noted in the resident documentation. She continues to improve. She is anxious about being in the hospital too long - notes that her parents and in-laws are taking care of her children -she really just wants to get home to see her children. She is also anxious about the duration of insurance approval for her rehab at [facility]. EXAM Systolic blood pressures in the high 90s to low 100s; heart rate in the 80s90s Heart sounds are distant, regular rhythm, auscultated rate mid 80s. Lung sounds decreased right lower lobe, otherwise clear Extremities with sock line edema similar to yesterday DATA Labs CBC stable Sodium improved to 134, renal function preserved Imaging Chest x-ray from this morning shows no pulmonary edema Echocardiogram from yesterday shows left ventricular function of 20-25%, severe global hypokinesis of the left ventricle. Micro Blood cultures dated 11/13/2022 showed no growth at 48 hours Urine culture dated 11/13/2022 shows no growth. IMPRESSION & PLAN Sepsis, POA Continues to improve Suspect pulmonary source Change Levaquin to p.o. HFrEF Nonischemic Cardiology consultation appreciated Holding metoprolol in the setting of hypotension; holding torsemide given acute illness Clinically and radiographically no evidence of overt failure Reintroduce diuretic, but half of the previous dose Hopefully able to reintroduce beta-izzy tomorrow should BP/heart rate permit Bipolar disorder Anxiety PTSD Psychiatric consultation appreciated Hyponatremia, improving Daily BMP Diabetes Previously on SGL T2 and metformin; on hold given acute illness Switch to basal/bolus insulin GERD Continue Protonix Postoperative wound, anterior abdominal wall Wound VAC Wound care consult Subjective Pt continues to feel better. Anxious to return to rehab. Denies LYMAN, CP, N/VD, LE swelling. Decreased SOB today. Review of Systems Review of Systems: reviewed, per HPI Physical Exam Physical Exam: General: patient resting comfortably, NAD, non-toxic in appearance, AA&O x 4, answers questions appropriately and follows commands. Skin: warm, dry, intact HEENT: NC/AT, anicteric sclera, conjunctiva without injection, moist mucus membranes, trachea midline, no thyromegaly, no JVD Heart: +S1/S2, regular, no m/r/g Lungs: R side decreased breath sounds, mild rales Abd: +BS, soft, TTP. PEG in place. Wound vac in place. Ext: warm, no clubbing/cyanosis or edema Neuro: nonfocal, patient AA&O x 4, speech intact, no facial droop, moving all extremities on command. Results & Data Results & Data Vital Signs (Past 12 Hours) Vital Signs Temp Pulse Pulse Resp BP Pulse Ox O2 Del Method 11/16/22 02:34 36.4 C L 96 H 18 96/63 L 94 Room Air 11/15/22 23:36 89 11/15/22 22:53 90 11/15/22 22:29 37.3 C 94 H 18 97/59 L 94 Room Air 11/15/22 21:30 Nasal Cannula 11/15/22 19:11 37.2 C 101 H 20 119/82 92 Room Air O2 Flow Rate 11/16/22 02:34 11/15/22 23:36 11/15/22 22:53 11/15/22 22:29 11/15/22 21:30 2 11/15/22 19:11 Resident Activity Tracking Resident Involvement: Resident Care Provided Care Provided: Adult Hospital Medicine (1) Sepsis Sepsis acute organ dysfunction status: unspecified Sepsis type: sepsis due to unspecified organism Qualified Code(s): A41.9 - Sepsis, unspecified organism (2) UTI (urinary tract infection) Hematuria presence: without hematuria Urinary tract infection type: site unspecified Qualified Code(s): N39.0 - Urinary tract infection, site not specified
[2022-11-16 07:16] LABS: Albumin Level 2.8 gm/dl (3.4-5.0); Bilirubin,Total 0.6 mg/dl (0.2-1.0); Calcium 7.9 mg/dl (8.6-10.3); Magnesium 1.7 mg/dl (1.7-2.4); Potassium 3.7 mmol/L (3.5-5.1)
[2022-11-16 07:22] LABS: Albumin Globulin Ratio 1.1 (0.9-2); BUN Creatinine Ratio 22.4 (10-20); Creatinine Clr Calc Pharmacy 145.9 ml/min; Est GFR (African American) 116.1 ml/min; Est GFR (Non-African American) 100.2 ml/min; Globulin 2.5 gm/dl (2.5-4.0); Total Protein 5.3 gm/dl (6.0-8.3)
[2022-11-16 07:27] LABS: Anisocytosis Present
[2022-11-16 07:44] LABS: INR 1.2 (0.9-1.1); Prothrombin Time 13.5 Seconds (9.0-12.0)
--- NOTE | 2022-11-16 08:09 | XRay Report ---
XR chest 1V portable HISTORY: 37 years-old Female Fluid status evaluation acute shortness of breath COMPARISON: 11/15/2022 TECHNIQUE: AP view of the chest FINDINGS: Cardiac silhouette is enlarged. There is unchanged right hemidiaphragmatic elevation with persistent right basilar opacities. No pneumothorax, pleural effusion or overt pulmonary edema. Bones appear josh ssly intact. IMPRESSION: 1. Cardiomegaly without pulmonary edema. 2. Unchanged right diaphragmatic elevation with right lung base opacities, likely atelectatic. ACT 112: Negative or not required by law. The above report was generated using voice recognition software. It may contain grammatical, syntax o r spelling errors. Electronically signed by: Alfredo Sena M.D. 11/16/2022 8:07 AM
[2022-11-16] MEDS: MIDODRINE HCL 2.5 MG TAB PO SCH ×3 (08:57→16:35)
[2022-11-16] MEDS: INSULIN ASPART PER UNIT CHARGE SC SCH ×5 (08:57→20:53)
[2022-11-16] MEDS: HEPARIN SOD 5,000 UNIT/0.5 ML VIAL SQ SCH ×3 (08:57→20:52)
[2022-11-16] MEDS: busPIRone 5 MG TAB PO SCH ×3 (08:57→20:53)
[2022-11-16] MEDS: PANTOprazole 40 MG TAB PO SCH (08:57)
[2022-11-16] MEDS: LANTUS PER UNIT CHARGE SQ SCH ×2 (08:58→20:52)
[2022-11-16] MEDS: CHOLESTYRAMINE LIGHT 4 GM PKT PO SCH ×2 (09:33→20:52)
--- NOTE | 2022-11-16 11:12 | Cardiology Progress Note ---
Date of Service November 16, 2022 Assessment & Plan (1) CHF (congestive heart failure): (2) Cardiomyopathy: (3) Mitral regurgitation: (4) Pulmonary hypertension: Plan 1. Cardiomyopathy: Nonischemic. Will restart medical therapy once her blood pressure remained stable. It seems reasonable to try to discontinue her midodrine. At some point her metoprolol can be Re added. SGLT 2 inhibitor would be a good idea but in the setting of her urinary tract infection this is relatively contraindicated. Previously on Farxiga. We should also consider Entresto in the addition of spironolactone again, once hemodynamically stable. 2. Acute decompensated congestive heart failure: She seems well compensated. Renal function normal. Negative fluid balance again yesterday. 3. Valvular heart disease: Moderate mitral regurgitation 4. Pulmonary hypertension: Likely related to both left-sided heart failure and Pickwickian syndrome. Maintaining good oxygenation. Admission and Anticipated Discharge Date Admission Date: November 13, 2022 Subjective This morning the patient claims to be feeling well. Her main concerns involve some crisis at home. She is anxious to leave the hospital as a result. She denies significant breathing difficulty but did admit to sleeping and approximately 45 last night. Some of this stems from some anxiety related to a prior intubation. She did report having a panic attack thinking about this last night. No chest pains. Some minimal ambulation with a walker. Anxious for more mobility. No dizziness or lightheadedness. Review of Systems Review of Systems: Per HPI Physical Exam Physical Exam: She is alert and oriented x3. Mood affect appear normal. She answered all questions appropriately. Obese HEENT: Sclerae are anicteric. Pupils are equal and reactive to light and accommodation. Extraocular movements were intact. Neuro: Cranial nerves intact Lungs: Some crackles at the right base. Otherwise good aeration good air movement. No expiratory wheezing. Normal respiratory effort. Cardiac: The rhythm was regular. S1 and S2 were normal. There are no murmurs on examination. The PMI was not markedly displaced on palpation. Extremities: Patient has bilateral radial pulses that are equal in intensity. There is no evidence cyanosis or clubbing. Results & Data Vital Signs (Past 12 Hours) Vital Signs Temp Pulse Pulse Resp BP Pulse Ox O2 Del Method 11/16/22 07:08 36.7 C 87 18 103/72 100 Room Air 11/16/22 02:34 36.4 C L 96 H 18 96/63 L 94 Room Air 11/15/22 23:36 89 Laboratory Results Abnormal Lab Results 11/15/22 11/15/22 11/15/22 11:35 16:51 20:19 WBC RBC Hgb Hct MCV MCH MCHC RDW Std Deviation RDW Coeff of Ramiro Plt Count MPV Immature Gran % (Auto) Neut % (Auto) Lymph % (Auto) [place] % (Auto) Eos % (Auto) Baso % (Auto) Neut # (Auto) Lymph # (Auto) [place] # (Auto) Eos # (Auto) Baso # (Auto) Immature Gran # (Auto) Anisocytosis PT INR Sodium Potassium Chloride Carbon Dioxide Anion Gap BUN Creatinine Est Cr Clr Drug Dosing Est GFR ( Amer) Est GFR (Non-Af Amer) BUN/Creatinine Ratio Glucose POC Glucose 103 H 140 H 82 Calcium Magnesium Total Bilirubin AST ALT Alkaline Phosphatase Total Protein Albumin Globulin Albumin/Globulin Ratio 11/16/22 11/16/22 11/16/22 06:19 06:19 06:19 WBC 9.43 RBC 3.33 L Hgb 9.7 L Hct 29.7 L MCV 89.2 MCH 29.1 MCHC 32.7 RDW Std Deviation 67.7 H RDW Coeff of Ramiro 20.5 H Plt Count 180 MPV 9.9 Immature Gran % (Auto) 0.5 Neut % (Auto) 76.5 Lymph % (Auto) 11.6 [place] % (Auto) 11.2 Eos % (Auto) 0.0 Baso % (Auto) 0.2 Neut # (Auto) 7.21 H Lymph # (Auto) 1.09 L [place] # (Auto) 1.06 H Eos # (Auto) 0.00 Baso # (Auto) 0.02 Immature Gran # (Auto) 0.05 Anisocytosis Present PT 13.5 H INR 1.2 H Sodium 134 L Potassium 3.7 Chloride 105 Carbon Dioxide 21 Anion Gap 8 BUN 17 Creatinine 0.76 Est Cr Clr Drug Dosing 145.9 Est GFR ( Amer) 116.1 Est GFR (Non-Af Amer) 100.2 BUN/Creatinine Ratio 22.4 H Glucose 75 POC Glucose Calcium 7.9 L Magnesium 1.7 Total Bilirubin 0.6 AST 16 ALT 15 Alkaline Phosphatase 205 H Total Protein 5.3 L Albumin 2.8 L Globulin 2.5 Albumin/Globulin Ratio 1.1 11/16/22 11/16/22 11/16/22 07:26 07:26 07:47 WBC RBC Hgb Hct MCV MCH MCHC RDW Std Deviation RDW Coeff of Ramiro Plt Count MPV Immature Gran % (Auto) Neut % (Auto) Lymph % (Auto) [place] % (Auto) Eos % (Auto) Baso % (Auto) Neut # (Auto) Lymph # (Auto) [place] # (Auto) Eos # (Auto) Baso # (Auto) Immature Gran # (Auto) Anisocytosis PT INR Sodium Potassium Chloride Carbon Dioxide Anion Gap BUN Creatinine Est Cr Clr Drug Dosing Est GFR ( Amer) Est GFR (Non-Af Amer) BUN/Creatinine Ratio Glucose POC Glucose 57 L* 57 L* 70 Calcium Magnesium Total Bilirubin AST ALT Alkaline Phosphatase Total Protein Albumin Globulin Albumin/Globulin Ratio Diagnostic Findings Chest x-ray today revealed elevated right hemidiaphragm with some compressive atelectasis. No pulmonary edema. PG Care Time/CCT Total # of Minutes Spent Total Time Spent with Patient: Total time spent is greater than 50% in coordination of care (as documented) at patient's floor/unit and/or counseling patient: Coding Level of Care Code 66721 SUB INP/OBS CARE 2/35MIN Diagnoses CHF (congestive heart failure) I50.9 Cardiomyopathy I42.9 Mitral regurgitation I34.0 Pulmonary hypertension I27.20
[2022-11-16] MEDS: ACETAMINOPHEN 325 MG TAB PO PRN (12:44)
[2022-11-16] MEDS: TORSEMIDE 10 MG TAB PO SCH (14:26)
[2022-11-16] MEDS: ARIPiprazole 5 MG TAB PO SCH (15:02)
[2022-11-16] MEDS: CARBOHYDRATES FOR HYPOGLYCEMIA PO PRN (16:33)
[2022-11-16] MEDS ORDERED: hydrOXYzine HCl 25 MG TAB PO PRN (18:31)
[2022-11-16] MEDS ORDERED: hydrOXYzine HCl 25 MG TAB PO STA (18:31)
[2022-11-16] MEDS ORDERED: LORazepam 1 MG TAB PO PRN (18:47)
[2022-11-17] MEDS: oxyCODONE/ACETAMINOPHEN 5mg/325mg TAB PO PRN ×2 (04:02→10:34)
[2022-11-17 06:52] LABS: Basophils # (auto) 0.01 K/uL (0.00-0.20); Basophils % (auto) 0.1 %; Hematocrit (blood only) 28.2 % (37.0-47.0); Hemoglobin 9.1 g/dl (12.0-16.0); Immature Granulocytes # (auto) 0.06 K/uL (0.01-0.20); Immature Granulocytes % (auto) 0.7 %; Lymphocytes # (auto) 1.41 K/uL (1.20-3.40); Lymphocytes % (auto) 15.8 %; Mean Corpuscular Hemoglobin 29.2 pg (25.0-34.0); Mean Corpuscular Hgb Conc 32.3 g/dL (32.0-36.0); Mean Corpuscular Volume 90.4 fL (80.0-100.0); Mean Platelet Volume 9.8 fL (9.4-12.4); Monocytes # (auto) 1.07 K/uL (0.11-0.59); Neutrophils # (auto) 6.38 K/uL (1.40-6.50); Neutrophils % (auto) 71.4 %; Platelet Count 178 K/uL (130-400); RDW Coefficient of Variation 20.8 % (11.5-14.5); Red Blood Count 3.12 M/uL (4.20-5.40); White Blood Count 8.93 K/ul (4.8-10.8)
--- NOTE | 2022-11-17 07:01 | Hospitalist Progress Note ---
Date of Service November 17, 2022 Assessment & Plan (1) Sepsis: (2) UTI (urinary tract infection): (3) History of bowel resection: (4) Acute hypotension: (5) Bipolar disorder: (6) PTSD (post-traumatic stress disorder): (7) Type 2 diabetes mellitus: (8) Hypomagnesemia: (9) Hyponatremia: (10) CHF (congestive heart failure): (11) GERD with esophagitis: Plan #Sepsis Levofloxacin day 3 transition to PO, plan for total 7 days f/u urine and blood cx Minimal fluid resuscitation / HFrEF 20-25% antiemetics and antipyretics as needed procalcitonin continues to improve CXR in ED demonstrated RLL infiltrate, no other obvious source #UTI UA with evidence of UTI No growth urine cx @ 24hrs #Hypotension Monitor closely Holding fluid resuscitation in setting of HFrEF #CHF Echo 11/14/22 demonstrates EF 20-25% IVC imaging demonstrates adequate intravascular volume Dailly CXR to help evaluate fluid status Torsemide 10mg today Continue to hold Metoprolol, SGLT2 #Hx Bowel Resection Wound care to manage wound vac in place Peg tube present #Bipolar I Lorazepam 0.5 PRN Buspar 7.5mg TID Will add abilify 5mg today, plan to increase by 5mg q2 days until goal of 15mg daily #PTSD As above #T2DM SGLT2 and metformin held Basal bolus and SSI #Hypomagnesemia Replete as needed #Hyponatremia Stable at 130 Encourage PO intake #GERD Protonix Admission and Anticipated Discharge Date Admission Date: November 13, 2022 Supervising Physician Co-Signing Physician Notes ATTESTATION I also saw the patient and confirmed galvez portions of the history and exam. I agree with the impression and plan as noted in the resident documentation. She looks quite well today; appears pending physical therapy. Out of bed upon exam. No complaints. EXAM 121/68, 94, 20, 36.8, 90% room air Heart sounds are distant, regular rhythm Lung sounds decreased right lower lobe, otherwise clear Extremities with edema similar to yesterday DATA Labs Hemoglobin 9.1, white blood cell count 8.93 Sodium 138, potassium 3.6, BUN 14, creatinine 0.70 Imaging Chest x-ray from this morning shows slight increase in congestion IMPRESSION & PLAN Sepsis, POA Continues to improve Continue Levaquin 750 mg p.o. daily HFrEF Nonischemic Cardiology consultation appreciated Holding metoprolol in the setting of hypotension; holding torsemide given acute illness Slight increase in pulmonary congestion today, so will increase torsemide If blood pressure increases this afternoon, reintroduce low-dose beta-izzy Will need to look into midodrine and see when it was started, but will start to wean Bipolar disorder Anxiety PTSD Psychiatric consultation appreciated Hyponatremia, improving Daily BMP Diabetes Previously on SGL T2 and metformin; on hold given acute illness Switch to basal/bolus insulin GERD Continue Protonix Postoperative wound, anterior abdominal wall Wound VAC Wound care consult Subjective Pt continues to feel better. Anxious to return to rehab. Denies LYMAN, CP, N/VD, LE swelling. Decreased SOB today Had increased anxiety yesterday evening. Restarted hydroxyzine. Overall feels ready to return to rehab. Ambulating adequately. Review of Systems Review of Systems: reviewed, per HPI Physical Exam Physical Exam: General: patient resting comfortably, NAD, non-toxic in appearance, AA&O x 4, answers questions appropriately and follows commands. Skin: warm, dry, intact HEENT: NC/AT, anicteric sclera, conjunctiva without injection, moist mucus membranes, trachea midline, no thyromegaly, no JVD Heart: +S1/S2, regular, no m/r/g Lungs: R side decreased breath sounds, mild rales Abd: +BS, soft, TTP. PEG in place. Wound vac in place. Ext: warm, no clubbing/cyanosis or edema Neuro: nonfocal, patient AA&O x 4, speech intact, no facial droop, moving all extremities on command. Results & Data Results & Data Vital Signs (Past 12 Hours) Vital Signs Temp Pulse Resp BP Pulse Ox O2 Del Method 11/17/22 03:53 36.5 C 85 14 89/61 L 95 Room Air 11/16/22 23:00 36.5 C 95 H 91/61 L 94 Room Air 11/16/22 19:45 Room Air 11/16/22 20:00 36.9 C 103 H 19 118/90 Room Air Resident Activity Tracking Resident Involvement: Resident Care Provided Care Provided: Adult Hospital Medicine (1) Sepsis Sepsis acute organ dysfunction status: unspecified Sepsis type: sepsis due to unspecified organism Qualified Code(s): A41.9 - Sepsis, unspecified organism (2) UTI (urinary tract infection) Hematuria presence: without hematuria Urinary tract infection type: site unspecified Qualified Code(s): N39.0 - Urinary tract infection, site not specified
--- NOTE | 2022-11-17 07:05 | XRay Report ---
XR chest 1V portable HISTORY: 37 years-old Female Fluid status evaluation COMPARISON: 11/16/2022 TECHNIQUE: AP view of the chest FINDINGS: Cardiac silhouette is enlarged. Unchanged right hemidiaphragmatic elevation. Pulmonary vascular conge stion with persistent right basilar linear densities. Bones appear grossly intact. IMPRESSION: 1. Cardiomegaly with pulmonary vascular congestion. 2. Unchanged right hemidiaphragmatic elevation with right basilar atelectasis. ACT 112: Negative or not required by law. The above report was generated using voice recognition software. It may contain grammatical, syntax o r spelling errors. Electronically signed by: Alfredo Sena M.D. 11/17/2022 7:04 AM
[2022-11-17 07:18] LABS: Anisocytosis Present
[2022-11-17 07:34] LABS: Albumin Globulin Ratio 1.1 (0.9-2); Albumin Level 2.6 gm/dl (3.4-5.0); Bilirubin,Total 0.5 mg/dl (0.2-1.0); Calcium 7.8 mg/dl (8.6-10.3); Creatinine Clr Calc Pharmacy 158.4 ml/min; Est GFR (African American) 128.3 ml/min; Est GFR (Non-African American) 110.7 ml/min; Globulin 2.4 gm/dl (2.5-4.0); Potassium 3.6 mmol/L (3.5-5.1)
[2022-11-17] MEDS: busPIRone 5 MG TAB PO SCH ×3 (07:45→20:34)
[2022-11-17] MEDS: HEPARIN SOD 5,000 UNIT/0.5 ML VIAL SQ SCH ×2 (07:45→20:34)
[2022-11-17] MEDS: levoFLOXacin 750 MG TAB PO SCH (07:46)
[2022-11-17] MEDS: TORSEMIDE 10 MG TAB PO SCH (07:46)
[2022-11-17] MEDS: PANTOprazole 40 MG TAB PO SCH (07:46)
[2022-11-17] MEDS: ARIPiprazole 5 MG TAB PO SCH (07:46)
[2022-11-17] MEDS: MIDODRINE HCL 2.5 MG TAB PO SCH ×3 (07:47→17:02)
[2022-11-17] MEDS: INSULIN ASPART PER UNIT CHARGE SC SCH ×5 (08:01→20:38)
[2022-11-17] MEDS: LANTUS PER UNIT CHARGE SQ SCH ×2 (08:01→08:05)
[2022-11-17] MEDS: CHOLESTYRAMINE LIGHT 4 GM PKT PO SCH ×2 (10:31→23:17)
[2022-11-17] MEDS ORDERED: levoFLOXacin 750 MG TAB PO SCH (11:00)
--- NOTE | 2022-11-17 13:07 | Cardiology Progress Note ---
Date of Service November 17, 2022 Assessment & Plan (1) CHF (congestive heart failure): (2) Cardiomyopathy: (3) Mitral regurgitation: (4) Pulmonary hypertension: Plan 1. Cardiomyopathy: Nonischemic. At some point will need to reinstitute her medical therapy. I would start with beta-blockade and Farxiga. These would likely have less effect on her blood pressure. However, she is still on midodrine which will need to be weaned and discontinued prior to starting these medications. 2. Acute decompensated congestive heart failure: She seems well compensated. Renal function normal. Negative fluid balance again yesterday. 3. Valvular heart disease: Moderate mitral regurgitation 4. Pulmonary hypertension: Likely related to both left-sided heart failure and Pickwickian syndrome. Maintaining good oxygenation. Overall condition is improving. The patient mention being discharged to rehab. She need to follow up with her usual co founder and chairman after discharge for reintroduction of her medications and titration of doses. Admission and Anticipated Discharge Date Admission Date: November 13, 2022 Subjective At lunchtime the patient's main concern was getting more salt for her food. We discussed a low-sodium diet in the implications of high sodium intake. She states that her breathing is good. She has been more ambulatory with a walker recently. No chest pain. No sense of palpitation. No dizziness. Review of Systems Review of Systems: Per HPI Physical Exam Physical Exam: She is alert and oriented x3. Mood affect appear normal. She answered all questions appropriately. Obese HEENT: Sclerae are anicteric. Pupils are equal and reactive to light and accommodation. Extraocular movements were intact. Neuro: Cranial nerves intact Lungs: Clear bilaterally. No expiratory wheezing. Normal respiratory effort. Cardiac: The rhythm was regular. S1 and S2 were normal. There are no murmurs on examination. The PMI was not markedly displaced on palpation. Extremities: Patient has bilateral radial pulses that are equal in intensity. There is no evidence cyanosis or clubbing. Results & Data Vital Signs (Past 12 Hours) Vital Signs Temp Pulse Pulse Resp BP Pulse Ox O2 Del Method 11/17/22 11:09 36.6 C 89 20 108/76 96 Room Air 11/17/22 11:35 84 11/17/22 11:35 Room Air 11/17/22 07:20 36.5 C 76 20 95/60 L 93 Room Air 11/17/22 03:53 36.5 C 85 14 89/61 L 95 Room Air Laboratory Results Abnormal Lab Results 11/16/22 11/16/22 11/16/22 16:29 16:29 16:50 WBC RBC Hgb Hct MCV MCH MCHC RDW Std Deviation RDW Coeff of Ramiro Plt Count MPV Immature Gran % (Auto) Neut % (Auto) Lymph % (Auto) [place] % (Auto) Eos % (Auto) Baso % (Auto) Neut # (Auto) Lymph # (Auto) [place] # (Auto) Eos # (Auto) Baso # (Auto) Immature Gran # (Auto) Anisocytosis Sodium Potassium Chloride Carbon Dioxide Anion Gap BUN Creatinine Est Cr Clr Drug Dosing Est GFR ( Amer) Est GFR (Non-Af Amer) BUN/Creatinine Ratio Glucose POC Glucose 61 L* 63 L* 67 L* Calcium Total Bilirubin AST ALT Alkaline Phosphatase Total Protein Albumin Globulin Albumin/Globulin Ratio 11/16/22 11/16/22 11/17/22 18:26 19:32 06:09 WBC 8.93 RBC 3.12 L Hgb 9.1 L Hct 28.2 L MCV 90.4 MCH 29.2 MCHC 32.3 RDW Std Deviation 69.0 H RDW Coeff of Ramiro 20.8 H Plt Count 178 MPV 9.8 Immature Gran % (Auto) 0.7 Neut % (Auto) 71.4 Lymph % (Auto) 15.8 [place] % (Auto) 12.0 Eos % (Auto) 0.0 Baso % (Auto) 0.1 Neut # (Auto) 6.38 Lymph # (Auto) 1.41 [place] # (Auto) 1.07 H Eos # (Auto) 0.00 Baso # (Auto) 0.01 Immature Gran # (Auto) 0.06 Anisocytosis Present Sodium Potassium Chloride Carbon Dioxide Anion Gap BUN Creatinine Est Cr Clr Drug Dosing Est GFR ( Amer) Est GFR (Non-Af Amer) BUN/Creatinine Ratio Glucose POC Glucose 113 H 73 Calcium Total Bilirubin AST ALT Alkaline Phosphatase Total Protein Albumin Globulin Albumin/Globulin Ratio 11/17/22 11/17/22 11/17/22 06:09 07:26 11:29 WBC RBC Hgb Hct MCV MCH MCHC RDW Std Deviation RDW Coeff of Ramiro Plt Count MPV Immature Gran % (Auto) Neut % (Auto) Lymph % (Auto) [place] % (Auto) Eos % (Auto) Baso % (Auto) Neut # (Auto) Lymph # (Auto) [place] # (Auto) Eos # (Auto) Baso # (Auto) Immature Gran # (Auto) Anisocytosis Sodium 138 Potassium 3.6 Chloride 109 H Carbon Dioxide 23 Anion Gap 6 BUN 14 Creatinine 0.70 Est Cr Clr Drug Dosing 158.4 Est GFR ( Amer) 128.3 Est GFR (Non-Af Amer) 110.7 BUN/Creatinine Ratio 20.0 Glucose 65 L POC Glucose 82 71 Calcium 7.8 L Total Bilirubin 0.5 AST 16 ALT 14 Alkaline Phosphatase 193 H Total Protein 5.0 L Albumin 2.6 L Globulin 2.4 L Albumin/Globulin Ratio 1.1 PG Care Time/CCT Total # of Minutes Spent Total Time Spent with Patient: Total time spent is greater than 50% in coordination of care (as documented) at patient's floor/unit and/or counseling patient: Coding Level of Care Code 16300 SUB INP/OBS CARE 2/35MIN Diagnoses CHF (congestive heart failure) I50.9 Cardiomyopathy I42.9 Mitral regurgitation I34.0 Pulmonary hypertension I27.20
[2022-11-17] MEDS: CARBOHYDRATES FOR HYPOGLYCEMIA PO PRN ×4 (16:58→20:58)
[2022-11-17] MEDS ORDERED: MIDODRINE HCL 2.5 MG TAB PO SCH ×2 (17:00)
[2022-11-18] MEDS: LORazepam 0.5 MG TAB PO PRN ×3 (04:29→22:45)
--- NOTE | 2022-11-18 07:01 | Hospitalist Progress Note ---
Date of Service November 18, 2022 Assessment & Plan (1) Sepsis: (2) UTI (urinary tract infection): (3) History of bowel resection: (4) Acute hypotension: (5) Bipolar disorder: (6) PTSD (post-traumatic stress disorder): (7) Type 2 diabetes mellitus: (8) Hypomagnesemia: (9) Hyponatremia: (10) CHF (congestive heart failure): (11) GERD with esophagitis: Plan #Sepsis Levofloxacin day 4 transition to PO, plan for total 7 days f/u urine and blood cx Minimal fluid resuscitation / HFrEF 20-25% antiemetics and antipyretics as needed CXR in ED demonstrated RLL infiltrate, no other obvious source #UTI UA with evidence of UTI No growth urine cx @ 24hrs #Hypotension Monitor closely Holding fluid resuscitation in setting of HFrEF #CHF Echo 11/14/22 demonstrates EF 20-25% IVC imaging demonstrates adequate intravascular volume Dailly CXR to help evaluate fluid status Torsemide 10mg today Continue to hold Metoprolol, SGLT2 #Hx Bowel Resection Wound care to manage wound vac in place Peg tube present #Bipolar I Lorazepam 0.5 PRN Buspar 7.5mg TID Abilify to 10mg today, goal of 15mg qD in two days #PTSD As above #T2DM SGLT2 and metformin held Basal bolus and SSI #Hypomagnesemia Replete as needed #Hyponatremia Stable at 130 Encourage PO intake #GERD Protonix Admission and Anticipated Discharge Date Admission Date: November 13, 2022 Supervising Physician Co-Signing Physician Notes I personally examined the patient and verified galvez points of history and exam, discussed case, and agree with decision making and plan documented by Dr. Gallardo. Patient improving clinically, continue levofloxacin course. Patient tearful and hopeful for rehabilitation, she would like return home to family 2 hours away. Appreciate cardiology recommendations for medical management. Subjective Pt continues to feel better. Anxious to return to rehab. Denies LYMAN, CP, N/VD, LE swelling. Decreased SOB today Continues to have elevated anxiety. Ambulating adequately. Insurance approval for [facility] still pending Review of Systems Review of Systems: reviewed, per HPI Physical Exam Physical Exam: General: patient resting comfortably, NAD, non-toxic in appearance, AA&O x 4, answers questions appropriately and follows commands. Skin: warm, dry, intact HEENT: NC/AT, anicteric sclera, conjunctiva without injection, moist mucus membranes, trachea midline, no thyromegaly, no JVD Heart: +S1/S2, regular, no m/r/g Lungs: R side decreased breath sounds, mild rales Abd: +BS, soft, TTP. PEG in place. Wound vac in place. Ext: warm, no clubbing/cyanosis or edema Neuro: nonfocal, patient AA&O x 4, speech intact, no facial droop, moving all extremities on command. Results & Data Results & Data Vital Signs (Past 12 Hours) Vital Signs Temp Pulse Resp BP BP Pulse Ox O2 Del Method 11/18/22 03:27 36.4 C L 93 H 18 87/58 L 91 Room Air 11/17/22 23:14 37.1 C 91 H 19 87/60 L 94 Room Air 11/17/22 20:27 36.4 C L 87 20 87/60 L 96 Room Air Resident Activity Tracking Resident Involvement: Resident Care Provided Care Provided: Adult Hospital Medicine (1) Sepsis Sepsis acute organ dysfunction status: unspecified Sepsis type: sepsis due to unspecified organism Qualified Code(s): A41.9 - Sepsis, unspecified organism (2) UTI (urinary tract infection) Hematuria presence: without hematuria Urinary tract infection type: site unspecified Qualified Code(s): N39.0 - Urinary tract infection, site not specified
[2022-11-18] MEDS: PANTOprazole 40 MG TAB PO SCH (08:05)
[2022-11-18] MEDS: INSULIN ASPART PER UNIT CHARGE SC SCH ×4 (08:05→21:10)
[2022-11-18] MEDS: levoFLOXacin 750 MG TAB PO SCH (08:06)
[2022-11-18] MEDS: MIDODRINE HCL 2.5 MG TAB PO SCH ×3 (08:06→18:23)
[2022-11-18] MEDS: busPIRone 5 MG TAB PO SCH ×3 (08:06→21:09)
[2022-11-18] MEDS: ARIPiprazole 5 MG TAB PO SCH (08:06)
[2022-11-18] MEDS: HEPARIN SOD 5,000 UNIT/0.5 ML VIAL SQ SCH ×2 (08:07→21:10)
[2022-11-18] MEDS: TORSEMIDE 10 MG TAB PO SCH (08:14)
[2022-11-18 09:18] LABS: Basophils # (auto) 0.02 K/uL (0.00-0.20); Basophils % (auto) 0.2 %; Hemoglobin 9.7 g/dl (12.0-16.0); Immature Granulocytes # (auto) 0.07 K/uL (0.01-0.20); Immature Granulocytes % (auto) 0.7 %; Lymphocytes # (auto) 1.27 K/uL (1.20-3.40); Lymphocytes % (auto) 13.1 %; Mean Corpuscular Hemoglobin 29.3 pg (25.0-34.0); Mean Corpuscular Hgb Conc 31.3 g/dL (32.0-36.0); Mean Corpuscular Volume 93.7 fL (80.0-100.0); Monocytes # (auto) 1.06 K/uL (0.11-0.59); Monocytes % (auto) 10.9 %; Neutrophils # (auto) 7.28 K/uL (1.40-6.50); Neutrophils % (auto) 75.1 %; Platelet Count 227 K/uL (130-400); RDW Coefficient of Variation 20.7 % (11.5-14.5); RDW Standard Deviation 71.5 fL (36.4-46.3); Red Blood Count 3.31 M/uL (4.20-5.40)
[2022-11-18 09:36] LABS: Albumin Globulin Ratio 1.1 (0.9-2); Albumin Level 2.9 gm/dl (3.4-5.0); BUN Creatinine Ratio 20.9 (10-20); Bilirubin,Total 0.5 mg/dl (0.2-1.0); Calcium 7.8 mg/dl (8.6-10.3); Creatinine Clr Calc Pharmacy 159.6 ml/min; Est GFR (African American) 130.1 ml/min; Est GFR (Non-African American) 112.3 ml/min; Globulin 2.6 gm/dl (2.5-4.0); Potassium 3.8 mmol/L (3.5-5.1); Total Protein 5.5 gm/dl (6.0-8.3)
[2022-11-18] MEDS: CHOLESTYRAMINE LIGHT 4 GM PKT PO SCH ×2 (09:40→21:10)
[2022-11-18] MEDS: oxyCODONE/ACETAMINOPHEN 5mg/325mg TAB PO PRN ×2 (09:40→21:08)
[2022-11-18 14:07] LABS: Anisocytosis Present
--- NOTE | 2022-11-18 16:57 | XRay Report ---
SINGLE VIEW CHEST CLINICAL HISTORY: Fluid overload. FINDINGS: An AP, portable, upright chest radiograph is compared to study dated 11/17/2022. The heart i s enlarged. There is mild pulmonary vascular congestion. There is mild elevation right hemidiaphragm with bibasilar atelectasis. Trace pleural effusions are suspected. No pneumothorax is seen. The bony thorax is grossly intact. IMPRESSION: 1. Cardiomegaly with mild pulmonary vascular congestion. 2. Suspect trace pleural effusions. ACT 112: Negative or not required by law. Electronically signed by: Se Muñoz M.D. 11/18/2022 4:56 PM
--- NOTE | 2022-11-18 17:05 | Cardiology Progress Note ---
Date of Service November 18, 2022 Assessment & Plan (1) CHF (congestive heart failure): (2) Cardiomyopathy: (3) Mitral regurgitation: (4) Pulmonary hypertension: Plan 1. Cardiomyopathy: Nonischemic. Midodrine is being weaned. Hopefully at some point we can restart some of her medical therapy. 2. Acute decompensated congestive heart failure: Well compensated. No evidence of pulmonary vascular congestion. 3. Valvular heart disease: Moderate mitral regurgitation 4. Pulmonary hypertension: Likely related to both left-sided heart failure and Pickwickian syndrome. Maintaining good oxygenation. Overall condition is improving. T if her blood pressure remains stable off of midodrine we may have an opportunity to reinstitute some therapy. I would start with beta-blockade, this could be low-dose carvedilol or metoprolol succinate I would let her recover from her urinary tract infection prior to consider an SGLT 2 inhibitor Addition of Dar/ARB or Entresto may have more significant hemodynamic affects and should be considered last I will be away from the hospital for the next 2 days. They are specific questions regarding her cardiac care or condition please contact the on-call [facility], [place] head wrestling coach Admission and Anticipated Discharge Date Admission Date: November 13, 2022 Subjective The patient reports feeling better today. She reports getting stronger actually able to ambulate out of a chair independently today. She denies dizziness or lightheadedness at that associated with bending over and standing up. No chest pain. No breathing difficulty. Tolerating a diet Review of Systems Review of Systems: Per HPI Physical Exam Physical Exam: She is alert and oriented x3. Mood affect appear normal. She answered all questions appropriately. Obese HEENT: Sclerae are anicteric. Pupils are equal and reactive to light and accommodation. Extraocular movements were intact. Neuro: Cranial nerves intact Lungs: Clear bilaterally. No expiratory wheezing. Normal respiratory effort. Cardiac: The rhythm was regular. S1 and S2 were normal. There are no murmurs on examination. The PMI was not markedly displaced on palpation. Extremities: Patient has bilateral radial pulses that are equal in intensity. There is no evidence cyanosis or clubbing. Results & Data Vital Signs (Past 12 Hours) Vital Signs Temp Pulse Pulse Resp BP Pulse Ox O2 Del Method 11/18/22 15:57 36.6 C 87 20 99/66 L 99 Room Air 11/18/22 14:18 96 H 11/18/22 12:07 Room Air 11/18/22 11:09 36.6 C 102 H 18 104/61 95 Room Air 11/18/22 07:15 36.4 C L 93 H 19 102/70 97 Room Air 11/18/22 07:05 93 H Laboratory Results Abnormal Lab Results 11/17/22 11/17/22 11/17/22 17:23 17:25 17:58 WBC RBC Hgb Hct MCV MCH MCHC RDW Std Deviation RDW Coeff of Ramiro Plt Count MPV Immature Gran % (Auto) Neut % (Auto) Lymph % (Auto) [place] % (Auto) Eos % (Auto) Baso % (Auto) Neut # (Auto) Lymph # (Auto) [place] # (Auto) Eos # (Auto) Baso # (Auto) Immature Gran # (Auto) Anisocytosis Sodium Potassium Chloride Carbon Dioxide Anion Gap BUN Creatinine Est Cr Clr Drug Dosing Est GFR ( Amer) Est GFR (Non-Af Amer) BUN/Creatinine Ratio Glucose POC Glucose 58 L* 61 L* 62 L* Calcium Total Bilirubin AST ALT Alkaline Phosphatase Total Protein Albumin Globulin Albumin/Globulin Ratio 11/17/22 11/17/22 11/17/22 18:01 18:40 19:23 WBC RBC Hgb Hct MCV MCH MCHC RDW Std Deviation RDW Coeff of Ramiro Plt Count MPV Immature Gran % (Auto) Neut % (Auto) Lymph % (Auto) [place] % (Auto) Eos % (Auto) Baso % (Auto) Neut # (Auto) Lymph # (Auto) [place] # (Auto) Eos # (Auto) Baso # (Auto) Immature Gran # (Auto) Anisocytosis Sodium Potassium Chloride Carbon Dioxide Anion Gap BUN Creatinine Est Cr Clr Drug Dosing Est GFR ( Amer) Est GFR (Non-Af Amer) BUN/Creatinine Ratio Glucose POC Glucose 64 L* 66 L* 93 Calcium Total Bilirubin AST ALT Alkaline Phosphatase Total Protein Albumin Globulin Albumin/Globulin Ratio 11/17/22 11/17/22 11/17/22 20:38 20:39 20:57 WBC RBC Hgb Hct MCV MCH MCHC RDW Std Deviation RDW Coeff of Ramiro Plt Count MPV Immature Gran % (Auto) Neut % (Auto) Lymph % (Auto) [place] % (Auto) Eos % (Auto) Baso % (Auto) Neut # (Auto) Lymph # (Auto) [place] # (Auto) Eos # (Auto) Baso # (Auto) Immature Gran # (Auto) Anisocytosis Sodium Potassium Chloride Carbon Dioxide Anion Gap BUN Creatinine Est Cr Clr Drug Dosing Est GFR ( Amer) Est GFR (Non-Af Amer) BUN/Creatinine Ratio Glucose POC Glucose 67 L* 63 L* 67 L* Calcium Total Bilirubin AST ALT Alkaline Phosphatase Total Protein Albumin Globulin Albumin/Globulin Ratio 11/17/22 11/17/22 11/18/22 21:13 21:38 07:23 WBC RBC Hgb Hct MCV MCH MCHC RDW Std Deviation RDW Coeff of Ramiro Plt Count MPV Immature Gran % (Auto) Neut % (Auto) Lymph % (Auto) [place] % (Auto) Eos % (Auto) Baso % (Auto) Neut # (Auto) Lymph # (Auto) [place] # (Auto) Eos # (Auto) Baso # (Auto) Immature Gran # (Auto) Anisocytosis Sodium Potassium Chloride Carbon Dioxide Anion Gap BUN Creatinine Est Cr Clr Drug Dosing Est GFR ( Amer) Est GFR (Non-Af Amer) BUN/Creatinine Ratio Glucose POC Glucose 64 L* 81 78 Calcium Total Bilirubin AST ALT Alkaline Phosphatase Total Protein Albumin Globulin Albumin/Globulin Ratio 11/18/22 11/18/22 11/18/22 08:10 08:10 11:29 WBC 9.70 RBC 3.31 L Hgb 9.7 L Hct 31.0 L MCV 93.7 MCH 29.3 MCHC 31.3 L RDW Std Deviation 71.5 H RDW Coeff of Ramiro 20.7 H Plt Count 227 MPV 10.0 Immature Gran % (Auto) 0.7 Neut % (Auto) 75.1 Lymph % (Auto) 13.1 [place] % (Auto) 10.9 Eos % (Auto) 0.0 Baso % (Auto) 0.2 Neut # (Auto) 7.28 H Lymph # (Auto) 1.27 [place] # (Auto) 1.06 H Eos # (Auto) 0.00 Baso # (Auto) 0.02 Immature Gran # (Auto) 0.07 Anisocytosis Present Sodium 138 Potassium 3.8 Chloride 108 H Carbon Dioxide 22 Anion Gap 8 BUN 14 Creatinine 0.67 Est Cr Clr Drug Dosing 159.6 Est GFR ( Amer) 130.1 Est GFR (Non-Af Amer) 112.3 BUN/Creatinine Ratio 20.9 H Glucose 77 POC Glucose 80 Calcium 7.8 L Total Bilirubin 0.5 AST 12 L ALT 12 Alkaline Phosphatase 200 H Total Protein 5.5 L Albumin 2.9 L Globulin 2.6 Albumin/Globulin Ratio 1.1 11/18/22 16:33 WBC RBC Hgb Hct MCV MCH MCHC RDW Std Deviation RDW Coeff of Ramiro Plt Count MPV Immature Gran % (Auto) Neut % (Auto) Lymph % (Auto) [place] % (Auto) Eos % (Auto) Baso % (Auto) Neut # (Auto) Lymph # (Auto) [place] # (Auto) Eos # (Auto) Baso # (Auto) Immature Gran # (Auto) Anisocytosis Sodium Potassium Chloride Carbon Dioxide Anion Gap BUN Creatinine Est Cr Clr Drug Dosing Est GFR ( Amer) Est GFR (Non-Af Amer) BUN/Creatinine Ratio Glucose POC Glucose 71 Calcium Total Bilirubin AST ALT Alkaline Phosphatase Total Protein Albumin Globulin Albumin/Globulin Ratio PG Care Time/CCT Total # of Minutes Spent Total Time Spent with Patient: Total time spent is greater than 50% in coordination of care (as documented) at patient's floor/unit and/or counseling patient: Coding Level of Care Code 87405 SUB INP/OBS CARE 2/35MIN Diagnoses CHF (congestive heart failure) I50.9 Cardiomyopathy I42.9 Mitral regurgitation I34.0 Pulmonary hypertension I27.20
[2022-11-19 06:14] LABS: Basophils # (auto) 0.03 K/uL (0.00-0.20); Basophils % (auto) 0.4 %; Hematocrit (blood only) 29.3 % (37.0-47.0); Hemoglobin 9.4 g/dl (12.0-16.0); Immature Granulocytes # (auto) 0.09 K/uL (0.01-0.20); Immature Granulocytes % (auto) 1.2 %; Lymphocytes # (auto) 1.53 K/uL (1.20-3.40); Lymphocytes % (auto) 20.4 %; Mean Corpuscular Hemoglobin 29.2 pg (25.0-34.0); Mean Corpuscular Hgb Conc 32.1 g/dL (32.0-36.0); Mean Platelet Volume 9.3 fL (9.4-12.4); Monocytes # (auto) 1.04 K/uL (0.11-0.59); Monocytes % (auto) 13.8 %; Neutrophils # (auto) 4.82 K/uL (1.40-6.50); Neutrophils % (auto) 64.2 %; Platelet Count 239 K/uL (130-400); RDW Coefficient of Variation 20.7 % (11.5-14.5); RDW Standard Deviation 69.5 fL (36.4-46.3); Red Blood Count 3.22 M/uL (4.20-5.40); White Blood Count 7.51 K/ul (4.8-10.8)
[2022-11-19 06:38] LABS: Anisocytosis Present
[2022-11-19 06:44] LABS: Albumin Globulin Ratio 1.1 (0.9-2); Albumin Level 2.7 gm/dl (3.4-5.0); BUN Creatinine Ratio 16.7 (10-20); Bilirubin,Total 0.4 mg/dl (0.2-1.0); Calcium 7.7 mg/dl (8.6-10.3); Creatinine Clr Calc Pharmacy 136.2 ml/min; Est GFR (African American) 112.6 ml/min; Est GFR (Non-African American) 97.1 ml/min; Globulin 2.5 gm/dl (2.5-4.0); Potassium 3.8 mmol/L (3.5-5.1); Total Protein 5.2 gm/dl (6.0-8.3)
--- NOTE | 2022-11-19 06:58 | Hospitalist Progress Note ---
Date of Service November 19, 2022 Assessment & Plan (1) Sepsis: (2) UTI (urinary tract infection): (3) History of bowel resection: (4) Acute hypotension: (5) Bipolar disorder: (6) PTSD (post-traumatic stress disorder): (7) Type 2 diabetes mellitus: (8) Hypomagnesemia: (9) Hyponatremia: (10) CHF (congestive heart failure): (11) GERD with esophagitis: Plan Medically stable for discharge to [facility] or other rehab facility. #Sepsis Levofloxacin PO day 5 , plan for total 7 days f/u urine and blood cx Minimal fluid resuscitation / HFrEF 20-25% antiemetics and antipyretics as needed CXR in ED demonstrated RLL infiltrate, no other obvious source #UTI UA with evidence of UTI No growth urine cx #Hypotension Monitor closely Holding fluid resuscitation in setting of HFrEF BP continues to improve but remains reliably soft Decrease midodrine to 1.25mg TID #CHF Echo 11/14/22 demonstrates EF 20-25% IVC imaging demonstrates adequate intravascular volume Dailly CXR to help evaluate fluid status Torsemide 20mg Will add back metoprolol tartrate 12.5mg BID today #Hx Bowel Resection Wound vac removed, incision site dressed Peg tube present - surgery with remove prior to dc #Bipolar I Lorazepam 0.5 PRN BID Lorazepam 1mg PRN q8 Buspar 7.5mg TID Abilify to 10mg today, goal of 15mg qD in two days #PTSD As above #T2DM SGLT2 and metformin held Has been hypoglycemic this admission Hold metformin and SGLT2 for now SSI #Hypomagnesemia Replete as needed #Hyponatremia Stable at 130 Encourage PO intake #GERD Protonix Admission and Anticipated Discharge Date Admission Date: November 13, 2022 Supervising Physician Co-Signing Physician Notes I personally examined the patient and verified galvez points of history and exam, discussed case, and agree with decision making and plan documented by Dr. Gallardo. Currently attempting to wean midodrine with hope of reintroducing beta- izzy per cardiology recommendations. PEG tube removed today by general surgery. Continuing course of levofloxacin. Patient anxious as we are awaiting authorization for patient to return to [facility]. Subjective Pt continues to feel better. Anxious to return to rehab. Denies LYMAN, CP, N/VD, LE swelling. Decreased SOB today Continues to have elevated anxiety. Ambulating adequately. Concerned re: foul smell in the area of her PEG tube. States this was supposed to be removed this week. Insurance approval for return to [facility] continues to be an issue Review of Systems Review of Systems: reviewed, per HPI Physical Exam Physical Exam: General: patient resting comfortably, NAD, non-toxic in appearance, AA&O x 4, answers questions appropriately and follows commands. Skin: warm, dry, intact HEENT: NC/AT, anicteric sclera, conjunctiva without injection, moist mucus membranes, trachea midline, no thyromegaly, no JVD Heart: +S1/S2, regular, no m/r/g Lungs: R side decreased breath sounds, mild rales Abd: +BS, soft, TTP. PEG in place. Wound vac in place. Ext: warm, no clubbing/cyanosis or edema Neuro: nonfocal, patient AA&O x 4, speech intact, no facial droop, moving all extremities on command. Results & Data Results & Data Vital Signs (Past 12 Hours) Vital Signs Temp Pulse Pulse Resp BP Pulse Ox O2 Del Method 11/19/22 03:21 36.5 C 93 H 20 99/64 L 94 Room Air 11/19/22 01:13 106 H 11/18/22 20:48 Room Air 11/18/22 20:04 36.4 C L 94 H 20 117/74 96 Room Air Resident Activity Tracking Resident Involvement: Resident Care Provided Care Provided: Adult Hospital Medicine (1) Sepsis Sepsis acute organ dysfunction status: unspecified Sepsis type: sepsis due to unspecified organism Qualified Code(s): A41.9 - Sepsis, unspecified organism (2) UTI (urinary tract infection) Hematuria presence: without hematuria Urinary tract infection type: site unspecified Qualified Code(s): N39.0 - Urinary tract infection, site not specified
--- NOTE | 2022-11-19 07:42 | XRay Report ---
SINGLE VIEW CHEST CLINICAL HISTORY: Fluid overload. FINDINGS: An AP, portable, upright chest radiograph is compared to study dated 11/18/2022. The heart i s enlarged. Pulmonary vascular congestion appears improved. There is mild elevation right hemidiaphra gm with bibasilar atelectasis. Trace pleural effusions are suspected. No pneumothorax is seen. The [place] thorax is grossly intact. IMPRESSION: 1. Cardiomegaly. Pulmonary vascular congestion appears modestly improved from yesterday. 2. Suspect trace pleural effusions. ACT 112: Negative or not required by law. Electronically signed by: Se Muñoz M.D. 11/19/2022 7:41 AM
[2022-11-19] MEDS: INSULIN ASPART PER UNIT CHARGE SC SCH ×4 (07:46→22:34)
[2022-11-19] MEDS: levoFLOXacin 750 MG TAB PO SCH (08:53)
[2022-11-19] MEDS: PANTOprazole 40 MG TAB PO SCH (08:53)
[2022-11-19] MEDS: CHOLESTYRAMINE LIGHT 4 GM PKT PO SCH ×2 (08:54→22:35)
[2022-11-19] MEDS: busPIRone 5 MG TAB PO SCH ×2 (08:54→15:48)
[2022-11-19] MEDS: HEPARIN SOD 5,000 UNIT/0.5 ML VIAL SQ SCH ×2 (08:54→20:39)
[2022-11-19] MEDS: TORSEMIDE 10 MG TAB PO SCH (08:55)
[2022-11-19] MEDS: MIDODRINE HCL 2.5 MG TAB PO SCH ×3 (08:55→17:37)
[2022-11-19] MEDS: ARIPiprazole 10 MG TAB PO SCH (08:56)
[2022-11-19] MEDS: LORazepam 0.5 MG TAB PO PRN ×2 (09:30→20:43)
[2022-11-19] MEDS ORDERED: MIDODRINE HCL 2.5 MG TAB PO ONE (13:00)
[2022-11-19] MEDS: oxyCODONE/ACETAMINOPHEN 5mg/325mg TAB PO PRN (14:14)
[2022-11-19] MEDS: busPIRone 15 MG TAB PO SCH ×2 (15:37→20:37)
--- NOTE | 2022-11-19 15:44 | Surgery Consultation ---
Date of Consultation November 19, 2022 Assessment & Plan (1) History of ischemic bowel disease: Recently treated at an [facility] along with open G-tube insertion. Eating for over a month, maintains weight. No aspiration concerns. Good appetite. The G-tube was removed today. The patient tolerated well. Keep covered with dry gauze until site is closed. Please re-consult surgery as needed. History of Present Illness Reason for Consultation: Gastrostomy tube removal Attending Physician: Tran Dior DO History of Present Illness Amado is a 37 y/o female who was recently taken care of at an [facility] for bowel ischemia. She underwent laparotomy with right hemicolectomy, washout. A second look operation was performed at which time a gastrostomy tube was placed. Amado says she has been eating without tube feeds since early October without issues. She says she had also gone through OT evaluation and graduated from thickened liquids to regular foods prior to this. She says she has no aspiration issues or concerns and has no problems eating since she started taking in a regular diet more than a month ago. For this recent she says she was to see her previous surgeons this week and have the G-tube removed but has been in rehab and has no way to get to that facility. She has also started to have some irritation around the tube. I have been consulted for G-tube removal. Allergies Allergy/AdvReac Type Severity Reaction Status Date / Time cefepime Allergy Hives Verified 11/14/22 01:35 doxycycline Allergy Hives Verified 11/14/22 01:34 Penicillins Allergy Hives Verified 11/14/22 01:33 Home Medications Medication Instructions Recorded Confirmed Type Unobtainable 11/14/22 11/14/22 History Patient History Medical History ADHD Bipolar disorder CHF (congestive heart failure) GERD with esophagitis Hypertension PTSD (post-traumatic stress disorder) Type 2 diabetes mellitus Surgical History History of bowel resection Social History Smoking Status: Former smoker Tobacco Type: Cigarettes Hx Alcohol Use: No Hx Substance Use: No Preferred Language: Beninese Communication Ability: Effective 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 Beliefs That Will Affect Care: None Current Living Situation: Rehab Current Living Situation Comment: [facility] Other Information That Helps Us Care for You: No Feels Safe at Home: Yes Safety Concerns: Feels Safe At This Time Assistive Devices: Walker and Wheelchair Review of Systems Constitutional: no fever, no sweats, no malaise and no weight loss Respiratory: no cough, no hemoptysis, no sputum production and no wheezing Gastrointestinal: no abdominal pain, no nausea, no vomiting and no dysphagia Hematologic / Lymphatic: no easy bleeding, no coagulopathy, no night sweats and no unexplained weight loss Physical Exam Constitutional: + morbidly obese; not ill appearing, not disheveled, not in distress and not diaphoretic Respiratory: normal respiratory effort; no respiratory distress, no labored breathing and does not use accessory muscles Cardiovascular: Rate/Rhythm: regular rate Gastrointestinal (Abdomen): Inspection/Auscultation: + significant pannus, + abdominal surgical incision and + abdominal surgical drain present (G-tube present) Percussion/Palpation: abdomen soft; abdomen nontender and no guarding Results & Data Vital Signs (Past 12 Hours) Vital Signs Temp Pulse Pulse Resp BP Pulse Ox O2 Del Method 11/19/22 11:32 36.4 C L 92 H 19 100/79 99 Room Air 11/19/22 07:30 Room Air 11/19/22 09:56 93 H 11/19/22 07:07 36.9 C 95 H 20 97/69 L 95 Room Air PG Care Time/CCT Total # of Minutes Spent Total Time Spent with Patient: Total time spent is greater than 50% in coordination of care (as documented) at patient's floor/unit and/or counseling patient: Coding Level of Care Code 43068 IN/OBS CONSULT LVL 2,35M Diagnoses History of ischemic bowel disease Z87.19
--- NOTE | 2022-11-20 06:57 | Hospitalist Progress Note ---
Date of Service November 20, 2022 Assessment & Plan (1) Sepsis: (2) UTI (urinary tract infection): (3) History of bowel resection: (4) Acute hypotension: (5) Bipolar disorder: (6) PTSD (post-traumatic stress disorder): (7) Type 2 diabetes mellitus: (8) Hypomagnesemia: (9) Hyponatremia: (10) CHF (congestive heart failure): (11) GERD with esophagitis: Plan Medically stable for discharge to [facility] or other rehab facility. #Sepsis Levofloxacin PO day 6 , plan for total 7 days Urine and blood cx negative Minimal fluid resuscitation 2/2 HFrEF 20-25% antiemetics and antipyretics as needed CXR in ED demonstrated RLL infiltrate, no other obvious source Serial CXR showing interval improvement #UTI UA with evidence of UTI No growth urine cx #Hypotension BPs WNL last 24hrs Monitor closely Holding fluid resuscitation in setting of HFrEF Midodrine stopped today #CHF Echo 11/14/22 demonstrates EF 20-25% IVC imaging demonstrates adequate intravascular volume Dailly CXR to help evaluate fluid status Torsemide 20mg Metoprolol succinate 25mg daily #Hx Bowel Resection Wound vac removed, incision site dressed Peg tube present - surgery with remove prior to dc #Bipolar I Lorazepam 0.5 PRN BID Lorazepam 1mg PRN q8 Buspar 7.5mg TID Abilify to 10mg today, goal of 15mg qD in two days #PTSD As above #T2DM SGLT2 and metformin held Has been hypoglycemic this admission Hold metformin and SGLT2 for now SSI #Hypomagnesemia Replete as needed #Hyponatremia Stable at 130 Encourage PO intake #GERD Protonix Admission and Anticipated Discharge Date Admission Date: November 13, 2022 Supervising Physician Co-Signing Physician Notes I personally examined the patient and verified galvez points of history and exam, discussed case, and agree with decision making and plan documented by Dr. Gallardo. Patient off midodrine. Metoprolol initiated and torsemide now BID. Monitor BPs closely. SGLT2 recommended in addition to ACEi/ARB or Entresto per cardiology recommendations. Up-titrating Buspar and Abilify to psychiatry recommendations, patient will need to establish with psychiatry near home following rehabilitation. Patient anxious to get back to [facility] to complete rehabilitation. Subjective Pt continues to feel better. Anxious to return to rehab. Denies LYMAN, CP, N/VD, LE swelling. Decreased SOB today Continues to have elevated anxiety. Desires to focus on walking. Overnight IV "fell out" Insurance approval for return to [facility] continues to be an issue Review of Systems Review of Systems: reviewed, per HPI Physical Exam Physical Exam: General: patient resting comfortably, NAD, non-toxic in appearance, AA&O x 4, answers questions appropriately and follows commands. Skin: warm, dry, intact HEENT: NC/AT, anicteric sclera, conjunctiva without injection, moist mucus membranes, trachea midline, no thyromegaly, no JVD Heart: +S1/S2, regular, no m/r/g Lungs: R side decreased breath sounds, mild rales Abd: +BS, soft, TTP. Surgical incision dressed and dry. Ext: warm, no clubbing/cyanosis or edema Neuro: nonfocal, patient AA&O x 4, speech intact, no facial droop, moving all extremities on command. Results & Data Results & Data Vital Signs (Past 12 Hours) Vital Signs Temp Pulse Pulse Resp BP Pulse Ox O2 Del Method 11/20/22 03:23 36.4 C L 100 H 20 116/75 97 Room Air 11/19/22 23:42 103 H 11/19/22 23:15 36.5 C 95 H 20 107/72 97 Room Air 11/19/22 20:20 Room Air 11/19/22 19:45 36.5 C 91 H 20 128/76 99 Nasal Cannula Resident Activity Tracking Resident Involvement: Resident Care Provided Care Provided: Adult Hospital Medicine (1) Sepsis Sepsis acute organ dysfunction status: unspecified Sepsis type: sepsis due to unspecified organism Qualified Code(s): A41.9 - Sepsis, unspecified organism (2) UTI (urinary tract infection) Hematuria presence: without hematuria Urinary tract infection type: site unspecified Qualified Code(s): N39.0 - Urinary tract infection, site not specified
[2022-11-20 07:17] LABS: Basophils # (auto) 0.03 K/uL (0.00-0.20); Basophils % (auto) 0.4 %; Hematocrit (blood only) 29.2 % (37.0-47.0); Hemoglobin 9.5 g/dl (12.0-16.0); Immature Granulocytes # (auto) 0.12 K/uL (0.01-0.20); Immature Granulocytes % (auto) 1.5 %; Lymphocytes # (auto) 1.51 K/uL (1.20-3.40); Lymphocytes % (auto) 19.5 %; Mean Corpuscular Hemoglobin 29.7 pg (25.0-34.0); Mean Corpuscular Hgb Conc 32.5 g/dL (32.0-36.0); Mean Corpuscular Volume 91.3 fL (80.0-100.0); Mean Platelet Volume 9.2 fL (9.4-12.4); Monocytes # (auto) 0.99 K/uL (0.11-0.59); Monocytes % (auto) 12.8 %; Neutrophils % (auto) 65.8 %; Platelet Count 281 K/uL (130-400); RDW Coefficient of Variation 20.2 % (11.5-14.5); RDW Standard Deviation 67.9 fL (36.4-46.3); White Blood Count 7.75 K/ul (4.8-10.8)
[2022-11-20 07:32] LABS: Albumin Globulin Ratio 1.1 (0.9-2); Albumin Level 2.8 gm/dl (3.4-5.0); BUN Creatinine Ratio 18.2 (10-20); Bilirubin,Total 0.4 mg/dl (0.2-1.0); Calcium 7.7 mg/dl (8.6-10.3); Creatinine Clr Calc Pharmacy 161.3 ml/min; Est GFR (African American) 130.8 ml/min; Est GFR (Non-African American) 112.9 ml/min; Globulin 2.5 gm/dl (2.5-4.0); Potassium 3.5 mmol/L (3.5-5.1); Total Protein 5.3 gm/dl (6.0-8.3)
[2022-11-20 07:37] LABS: Anisocytosis Present
[2022-11-20] MEDS: MIDODRINE HCL 2.5 MG TAB PO SCH (08:14)
[2022-11-20] MEDS: ARIPiprazole 10 MG TAB PO SCH (08:15)
[2022-11-20] MEDS: levoFLOXacin 750 MG TAB PO SCH (08:15)
[2022-11-20] MEDS: HEPARIN SOD 5,000 UNIT/0.5 ML VIAL SQ SCH ×2 (08:16→21:31)
[2022-11-20] MEDS: TORSEMIDE 10 MG TAB PO SCH ×2 (08:17→17:11)
[2022-11-20] MEDS: PANTOprazole 40 MG TAB PO SCH (08:17)
[2022-11-20] MEDS: busPIRone 15 MG TAB PO SCH ×3 (08:18→21:32)
[2022-11-20] MEDS: INSULIN ASPART PER UNIT CHARGE SC SCH ×4 (08:20→22:59)
[2022-11-20] MEDS: LORazepam 0.5 MG TAB PO PRN ×2 (08:23→23:00)
--- NOTE | 2022-11-20 08:29 | XRay Report ---
SINGLE VIEW CHEST CLINICAL HISTORY: Fluid overload. FINDINGS: An AP, portable, upright chest radiograph is compared to study dated 11/19/2022. The heart i s enlarged. Pulmonary vascular has almost completely resolved. There is mild elevation of the right h emidiaphragm with right basilar consolidation. There is a trace right pleural effusion. No pneumothor ax is seen. The bony thorax is grossly intact. IMPRESSION: 1. Cardiomegaly. Pulmonary vascular congestion has almost completely resolved. 2. Elevation of the right hemidiaphragm with right basilar consolidation. This comparison atelectasis versus pneumonitis and clinical correlation will be required. 3. Trace right pleural effusion. ACT 112: Negative or not required by law. Electronically signed by: Se Muñoz M.D. 11/20/2022 8:27 AM
[2022-11-20] MEDS: CHOLESTYRAMINE LIGHT 4 GM PKT PO SCH ×2 (09:16→21:32)
[2022-11-20] MEDS: METOPROLOL SUCC 25MG EXT REL TAB PO SCH (10:48)
[2022-11-20] MEDS: oxyCODONE/ACETAMINOPHEN 5mg/325mg TAB PO PRN ×2 (10:50→21:30)
[2022-11-21] MEDS: ACETAMINOPHEN 325 MG TAB PO PRN (03:23)
--- NOTE | 2022-11-21 06:50 | Hospitalist Progress Note ---
Date of Service November 21, 2022 Assessment & Plan (1) Sepsis: (2) UTI (urinary tract infection): (3) History of bowel resection: (4) Acute hypotension: (5) Bipolar disorder: (6) PTSD (post-traumatic stress disorder): (7) Type 2 diabetes mellitus: (8) Hypomagnesemia: (9) Hyponatremia: (10) CHF (congestive heart failure): (11) GERD with esophagitis: Plan Medically stable for discharge to [facility] or other rehab facility. #Sepsis Levofloxacin PO day 6 , plan for total 7 days Urine and blood cx negative Minimal fluid resuscitation 2/2 HFrEF 20-25% antiemetics and antipyretics as needed CXR in ED demonstrated RLL infiltrate, no other obvious source Serial CXR showing interval improvement #UTI UA with evidence of UTI No growth urine cx #Hypotension BPs WNL last 24hrs Monitor closely Holding fluid resuscitation in setting of HFrEF Midodrine stopped today #CHF Echo 11/14/22 demonstrates EF 20-25% IVC imaging demonstrates adequate intravascular volume Dailly CXR to help evaluate fluid status Torsemide 20mg Metoprolol succinate 25mg daily #Hx Bowel Resection Wound vac removed, incision site dressed Peg tube present - surgery with remove prior to dc #Bipolar I Lorazepam 0.5 PRN BID Lorazepam 1mg PRN q8 Buspar 7.5mg TID Abilify to 10mg today, goal of 15mg qD in two days #PTSD As above #T2DM SGLT2 and metformin held Has been hypoglycemic this admission Hold metformin and SGLT2 for now SSI #Hypomagnesemia Replete as needed #Hyponatremia Stable at 130 Encourage PO intake #GERD Protonix Admission and Anticipated Discharge Date Admission Date: November 13, 2022 Subjective Pt continues to feel better. Anxious to return to rehab. Denies LYMAN, CP, N/VD, LE swelling. Decreased SOB today Continues to have elevated anxiety. Desires to focus on walking. Overnight IV "fell out" Insurance approval for return to [facility] continues to be an issue Review of Systems Review of Systems: reviewed, per HPI Physical Exam Physical Exam: General: patient resting comfortably, NAD, non-toxic in appearance, AA&O x 4, answers questions appropriately and follows commands. Skin: warm, dry, intact HEENT: NC/AT, anicteric sclera, conjunctiva without injection, moist mucus membranes, trachea midline, no thyromegaly, no JVD Heart: +S1/S2, regular, no m/r/g Lungs: R side decreased breath sounds, mild rales Abd: +BS, soft, TTP. Surgical incision dressed and dry. Ext: warm, no clubbing/cyanosis or edema Neuro: nonfocal, patient AA&O x 4, speech intact, no facial droop, moving all extremities on command. Results & Data Results & Data Vital Signs (Past 12 Hours) Vital Signs Temp Pulse Pulse Resp BP Pulse Ox O2 Del Method 11/21/22 03:16 36.4 C L 113 H 22 134/84 92 Room Air 11/20/22 23:37 92 H 11/20/22 23:11 36.6 C 92 H 20 109/68 95 Room Air 11/20/22 19:13 36.6 C 97 H 20 112/79 97 Room Air (1) Sepsis Sepsis acute organ dysfunction status: unspecified Sepsis type: sepsis due to unspecified organism Qualified Code(s): A41.9 - Sepsis, unspecified organism (2) UTI (urinary tract infection) Hematuria presence: without hematuria Urinary tract infection type: site unspecified Qualified Code(s): N39.0 - Urinary tract infection, site not specified
[2022-11-21 07:16] LABS: Basophils # (auto) 0.04 K/uL (0.00-0.20); Basophils % (auto) 0.5 %; Hematocrit (blood only) 29.4 % (37.0-47.0); Hemoglobin 9.4 g/dl (12.0-16.0); Immature Granulocytes # (auto) 0.18 K/uL (0.01-0.20); Immature Granulocytes % (auto) 2.4 %; Lymphocytes # (auto) 1.52 K/uL (1.20-3.40); Mean Corpuscular Volume 90.7 fL (80.0-100.0); Mean Platelet Volume 8.8 fL (9.4-12.4); Monocytes # (auto) 1.03 K/uL (0.11-0.59); Monocytes % (auto) 13.5 %; Neutrophils # (auto) 4.84 K/uL (1.40-6.50); Neutrophils % (auto) 63.6 %; Platelet Count 321 K/uL (130-400); RDW Standard Deviation 66.8 fL (36.4-46.3); Red Blood Count 3.24 M/uL (4.20-5.40); White Blood Count 7.61 K/ul (4.8-10.8)
[2022-11-21 07:27] LABS: Albumin Globulin Ratio 1.2 (0.9-2); Albumin Level 2.8 gm/dl (3.4-5.0); BUN Creatinine Ratio 15.4 (10-20); Bilirubin,Total 0.4 mg/dl (0.2-1.0); Calcium 7.4 mg/dl (8.6-10.3); Creatinine Clr Calc Pharmacy 136.5 ml/min; Est GFR (African American) 112.6 ml/min; Est GFR (Non-African American) 97.1 ml/min; Globulin 2.4 gm/dl (2.5-4.0); Potassium 3.5 mmol/L (3.5-5.1); Total Protein 5.2 gm/dl (6.0-8.3)
[2022-11-21 07:54] LABS: Estimated Average Glucose 108 mg/dl; Hemoglobin A1C 5.4 % (4.5-5.6)
[2022-11-21] MEDS: METOPROLOL SUCC 25MG EXT REL TAB PO SCH (08:20)
[2022-11-21] MEDS: TORSEMIDE 10 MG TAB PO SCH (08:20)
[2022-11-21] MEDS: PANTOprazole 40 MG TAB PO SCH (08:20)
[2022-11-21] MEDS: HEPARIN SOD 5,000 UNIT/0.5 ML VIAL SQ SCH (08:21)
[2022-11-21] MEDS: INSULIN ASPART PER UNIT CHARGE SC SCH ×2 (08:25→12:11)
[2022-11-21] MEDS: busPIRone 15 MG TAB PO SCH ×2 (08:25→13:55)
[2022-11-21] MEDS: LORazepam 0.5 MG TAB PO PRN (08:27)
[2022-11-21] MEDS: oxyCODONE/ACETAMINOPHEN 5mg/325mg TAB PO PRN ×2 (08:27→13:56)
[2022-11-21] MEDS ORDERED: ARIPiprazole 15 MG TAB PO SCH (09:00)
[2022-11-21] MEDS: CHOLESTYRAMINE LIGHT 4 GM PKT PO SCH (10:00)
--- NOTE | 2022-11-21 16:48 | Discharge Summary ---
Date of Service November 21, 2022 Admission HPI Per Admitting Provider Patient is a 37-year-old female with a past medical history of ADHD, morbid obesity, and nonischemic cardiomyopathy who presents to the hospital for evaluation for sepsis. She has been at [facility] for the past 8 days because on 09/20/2022, the patient presented to [facility] for respiratory distress after having been diagnosed with pneumonia and previously discharged from [facility] 4 days prior to her admission to [facility]. EMS was called on 09/20 for respiratory distress and she was found not wearing her oxygen and her saturations were in the 60s. She was brought into the hospital was placed on BiPAP improving her shortness of breath. She was found to be septic due to a pulmonary source and later experienced septic shock as well as renal failure. She did require intubation. Because of the septic shock, she did develop small bowel ischemia requiring resection. She eventually had a point that she required a dobutamine drip, however, after receiving antibiotics her disposition improved and her kidney function also improved and placed back on her home medications. Because she was found to have nonischemic cardiomyopathy and reduced ejection fraction of 20% via echocardiogram while in the hospital, she was started on metoprolol extended release and torsemide 20 mg daily. She had no antibiotics at the time of discharge. She received several units of blood while she was hospitalized as well. When she was medically stabilized, she was approved for inpatient rehab and transferred to [facility] on 11/04/2022. It seems that while she was at rehab, she has had progressively worsening fatigue/weakness and showing signs of infection that she has been febrile, short of breath, and weak. They attempted to give antibiotics over at [facility] but apparently, patient has allergies to penicillins and apparently cephalosporins as well that they were not able to adequately treat her for anything. For this reason, she was brought to the emergency department for evaluation and treatment. Currently, patient is complaining of fatigue and some shortness of breath albeit is improved from when she was at [facility]. She is having abdominal pain that she states has been worsening over the past 5 or 6 days. She has been having bowel movements that are normal and are occurring every day. Occasional nausea no episodes of vomiting. She does report she is having polyuria without dysuria or gross hematuria. Occasionally feels febrile. Otherwise no other complaints at this time. ED course: Patient seen and evaluated by provider. Labs are significant for An elevated white count of 17.1, hemoglobin of 10.1, INR 1.3, VBG pH of 7.33, sodium of 129, creatinine of 1.2, calcium of 6.5, magnesium of 0.7, elevated alkaline phosphatase at 215, BNP of 929, and a urinalysis significant for positive leukocyte Estrace, white blood cells. Bio fire is negative. Blood and urine cultures have been collected. Patient initially was given cefepime, however, she started having allergic reaction where she developed hives became itchy and her shortness of breath seem to worsen. She was given Benadryl and Pepcid which did improve her symptoms. She was also given a bolus of fluid. She was started on magnesium as well status post 2 g. The hospitalist service was then consulted for further recommendations and treatment. Admission Exam Per Admitting Provider Constitutional: well developed, well nourished, + obese and cooperative Eyes: + anicteric sclerae Neck: trachea midline, no thyromegaly Respiratory: + tachypneic Auscultation: + crackles Cardiovascular: Rate/Rhythm: regular rhythm and + tachycardic Heart Sounds: no murmur Vessels: no JVD Gastrointestinal (Abdomen): Percussion/Palpation: + abdomen tender (general tenderness to palpation) and abdomen soft Musculoskeletal: Head/Neck/Chest: normocephalic and head atraumatic Skin: no rashes, warm and dry Neurologic: moves all extremities Psychiatric: Orientation: alert and oriented x 3 Principal Diagnosis Pneumonia Discharge Exam General: patient resting comfortably, NAD, non-toxic in appearance, AA&O x 4, answers questions appropriately and follows commands. Skin: warm, dry, intact HEENT: NC/AT, anicteric sclera, conjunctiva without injection, moist mucus membranes, trachea midline, no thyromegaly, no JVD Heart: +S1/S2, regular, no m/r/g Lungs: R side decreased breath sounds, mild rales Abd: +BS, soft, TTP. Surgical incision dressed and dry. Ext: warm, no clubbing/cyanosis or edema Neuro: nonfocal, patient AA&O x 4, speech intact, no facial droop, moving all extremities on command. Discharge Data Allergies Allergy/AdvReac Type Severity Reaction Status Date / Time cefepime Allergy Hives Verified 11/14/22 01:35 doxycycline Allergy Hives Verified 11/14/22 01:34 Penicillins Allergy Hives Verified 11/14/22 01:33 Consultations 11/13/22 21:54 ED Decision to Admit Stat 11/14/22 14:08 Consult Cardiology Routine Consult Psychiatry Routine 11/14/22 15:30 Consult Health Information Management Routine 11/19/22 10:05 Consult General Surgery Routine Ordered Studies 11/13/22 19:37 CT abd pelvis IV con only Stat Hospital Course (1) Sepsis: (2) UTI (urinary tract infection): (3) History of bowel resection: (4) Acute hypotension: (5) Bipolar disorder: (6) PTSD (post-traumatic stress disorder): (7) Type 2 diabetes mellitus: (8) Hypomagnesemia: (9) Hyponatremia: (10) CHF (congestive heart failure): (11) GERD with esophagitis: Dung Fischer was admitted to our service due to shortness of breath and fatigue. She was found to have a R sided pneumonia and treated with 7 days of levofloxacin. Due to logistical issues for return to [facility] we also consulted cardiology and psychiatry to optimize her heart failure and psychiatric conditions. In regards to her cardiac history, she was weaned off of midodrine as her blood pressure tolerated, restarted on torsemide and metoprolol. Her SGLT2 was not restarted because she was largely hypoglycemic during admission. In fact, we stopped her insulin while she was admitted. In regards to her psychiatric history, she was restarted on 0.5mg lorazepam BID PRN, titrated to 15mg of abilify daily, titrated to 15mg buspirone TID and restarted on hydroxyzine 25mg Q6 PRN. She was discharged back to [facility] 11/21/22 Medically stable for discharge to [facility] or other rehab facility. #Sepsis Levofloxacin PO day 6 , plan for total 7 days Urine and blood cx negative Minimal fluid resuscitation 2/2 HFrEF 20-25% antiemetics and antipyretics as needed CXR in ED demonstrated RLL infiltrate, no other obvious source Serial CXR showing interval improvement #UTI UA with evidence of UTI No growth urine cx #Hypotension BPs WNL last 24hrs Monitor closely Holding fluid resuscitation in setting of HFrEF Midodrine stopped today #CHF Echo 11/14/22 demonstrates EF 20-25% IVC imaging demonstrates adequate intravascular volume Dailly CXR to help evaluate fluid status Torsemide 20mg Metoprolol succinate 25mg daily #Hx Bowel Resection Wound vac removed, incision site dressed Peg tube present - surgery with remove prior to dc #Bipolar I Lorazepam 0.5 PRN BID Lorazepam 1mg PRN q8 Buspar 7.5mg TID Abilify to 10mg today, goal of 15mg qD in two days #PTSD As above #T2DM SGLT2 and metformin held Has been hypoglycemic this admission Hold metformin and SGLT2 for now SSI #Hypomagnesemia Replete as needed #Hyponatremia Stable at 130 Encourage PO intake #GERD Protonix Total Time Total Time Spent Total Time Spent (In Minutes): <30 Discharge Plan Discharge Items Patient Disposition: Transfer Inpatient Rehab Fac Reason For Visit: SOB Discharge Diagnosis: CHF, Pneumonia Activity: Resume your previous activity Non-emergency contact: Primary Care Provider, Credit Professional and Psychiatrist Call non-emergency contact if: you have any medication questions, you have a fever, your temperature is above 101.5, your wound has increased redness, your wound has increased drainage and your wound pain has increased Follow-up/Referrals: [facility] [Primary Care Provider] - Diet: Carb Consistent or DM2 and Low Sodium (2gm) Addtl Attending Provider Instructions: You were admitted to the hospital for shortness of breath and found to have pneumonia. You were treated with antibiotics and your clinical performance improved daily.. A discharge summary will be sent to your primary care physician to ensure continuity of care. Please bring this discharge summary with you to your next office appointment so that your provider can review it at that time. Medications: Your medication list has been reviewed and reconciled upon discharge to ensure accuracy and continuity of care. An updated list of all your medications is included with your hospital discharge paperwork. Please review this list closely and make note of any changes to your medications. Follow up appointments: - Make a follow up appointment with your PCP within the next week. It is very important that you follow up with them shortly after discharge from the hospital. - Keep all of your follow up appointments as already scheduled. If you cannot make an appointment, notify your provider. CONTACT YOUR PRIMARY CARE PROVIDER if you experience any of the following: - Difficulty following your treatment plan - Difficulty taking any of your medications CALL 911 OR GO TO THE EMERGENCY DEPARTMENT if you experience any of the following: - [related to reason for admission] - Sudden, severe abdominal pain or nausea/vomiting - Severe chest pain or chest pain that radiates to your jaw or arm - Sudden, severe shortness of breath or difficulty breathing Pending Studies at Discharge: No Stand-Alone Forms: My [facility] Skilled Items Patient informed of condition?: Yes DNR: No Discharge Level of Care: Acute rehab Communicable Disease: No Discharge Prognosis: Stable Lines: None Urinary Catheter: No Medications and DC Order Prescriptions: New metoprolol succinate 25 mg Tablet Extended Release 24 Hr 25 mg PO QAM Qty: 30 0RF aripiprazole [Abilify] 15 mg Tablet 15 mg PO QAM Qty: 30 0RF buspirone 15 mg Tablet 15 mg PO TID Qty: 90 0RF hydroxyzine HCl 25 mg Tablet 25 mg PO Q6 PRN (Reason: anxiety) Qty: 120 0RF pantoprazole 40 mg Tablet,Delayed Release (Dr/Ec) 40 mg PO QAM Qty: 30 0RF torsemide 20 mg tablet 20 mg PO [id number] Qty: 60 0RF No Action Unobtainable Discharge Orders: Discharge Order (Routine); Ordered 11/21/22 Ordered By: Marcos Gallardo Admission Data Admit Date/Time: 11/13/22 23:29 Attending Provider: Vipin Holloway Admit Provider: Charli Wiley [facility] Other Providers: Blane Martino ; Jaya Wallace ; Luz Marina Recio ; Ginna Cuadra ; Jericho Moss ; [facility] ; Rishi Melissa ; Yoana Fields Supervising Physician Co-Signing Physician Notes I personally examined the patient and verified all galvez points of history and exam, discussed case, and agree with decision making with Dr Gallardo Feeling up to going back to rehab and would like to go. No new complaints. Vitals noted, in general she is awake and alert pleasant no distress. HEENT normocephalic atraumatic mucous membranes moist. Breathing unlabored no accessory muscle use good effort. Skin shows no rashes no pallor or icterus sepsisimproved. Stable for return to rehab. Resident Activity Tracking Resident Involvement: Resident Care Provided Care Provided: Adult [facility] Medicine
--- NOTE | 2022-11-21 19:49 | Billing Data ---
Date of Service November 21, 2022 Coding Level of Care Code 98647 INT INP/OBS CARE
== END 2022-11-21 14:46 | DRG 871 ==
LOC: ED 18:42 → SUATTDRO 23:29 → EDINP 23:29 → 1E 11-14 01:54 → 2S 11-15 18:59
DX: Z87.891 Personal history of nicotine dependence; I50.23 Acute on chronic systolic (congestive) heart failure; E11.649 Type 2 diabetes mellitus with hypoglycemia without coma; N39.0 Urinary tract infection, site not specified; E66.2 Morbid (severe) obesity with alveolar hypoventilation; K21.00 Gastro-esophageal reflux disease with esophagitis, without bleeding; I34.0 Nonrheumatic mitral (valve) insufficiency; J18.9 Pneumonia, unspecified organism; Z79.899 Other long term (current) drug therapy; I42.8 Other cardiomyopathies; Z88.0 Allergy status to penicillin; F31.9 Bipolar disorder, unspecified; Z93.1 Gastrostomy status; I27.29 Other secondary pulmonary hypertension; Z90.49 Acquired absence of other specified parts of digestive tract; T36.1X5A Adverse effect of cephalosporins and other beta-lactam antibiotics, initial encounter; L50.0 Allergic urticaria; E87.1 Hypo-osmolality and hyponatremia; Z88.1 Allergy status to other antibiotic agents; F41.9 Anxiety disorder, unspecified; E83.42 Hypomagnesemia; Z87.19 Personal history of other diseases of the digestive system; F43.10 Post-traumatic stress disorder, unspecified; Z68.41 Body mass index [BMI] 40.0-44.9, adult; E11.40 Type 2 diabetes mellitus with diabetic neuropathy, unspecified; I11.0 Hypertensive heart disease with heart failure; A41.9 Sepsis, unspecified organism